=== PATIENT | female | born 1930 | race Caucasian/White ===

== ENCOUNTER 2016-05-06 14:19 | Emergency (ER) | payer MEDICARE ==
[2016-05-06 14:27] VITALS: O2SAT 97
--- NOTE | 2016-05-06 14:56 | ERPHSYRPT ---
- History of Present Illness Time Seen by Provider: 05/06/16 14:53 Source: patient Exam Limitations: no limitations Patient Subjective Stated Complaint: PT REPORTS EPISODE OF UPPER GASTRIC NAUSEA X 3-STATES SHE FEELS LIKE SHE IS GOING TO BE SICK BUT DOES NOT-STATES EPISODES DO NOT LAST LONG-JOSE CRANE Triage Nursing Assessment: PT PINK WARM ET DRY-A & O X 3-RESP EASY ET NONLABORED -MOVING ALL EXTREMITIES WITH EASE Physician History: This is a 85-year-old white female who arrives with complaint of low waking up last night experiencing nausea which went from her epigastric region up to her head she does not know what time it happened she states that it lasted briefly and went away, Then she states that this afternoon at about 11:00 she had experienced nausea as well. Patient states she has a history of atrial fibrillation and she is worried about her heart she apparently has a heart doctor that is out of town. She is not having any chest pain she is not short of breath no vomiting no fevers. Patient states she is in no distress at this time Past medical history includes atrial fibrillation cataracts arrhythmia asthma DVT polyps osteoporosis kidney infections Past surgical history includes colonoscopy, bladder tie up, hysterectomy, back surgery, T&A Timing/Duration: other (some time in middle of the night patient woke up nauseous then again at 11:00 experience nauseous) Associated Symptoms: nausea, No vomiting, No abdominal pain, No shortness of breath, No heartburn, No diaphoresis, No cough, No chills, No chest pain, No fever, No headaches, No loss of appetite, No malaise, No rash, No syncope, No seizure, No weakness Allergies/Adverse Reactions: doxycycline Allergy (Severe, Verified 05/06/16 14:28) Blisters blisters in throat and difficulty swallowing Penicillins Allergy (Intermediate, Verified 05/06/16 14:28) Swelling of Face Sulfa (Sulfonamide Antibiotics) [Sulfa(Sulfonamide Antibiotics)] Allergy ( Intermediate, Verified 05/06/16 14:28) Swelling of Face amoxicillin [Amoxicillin] Allergy (Verified 05/06/16 14:28) ciprofloxacin [From Cipro] Adverse Reaction (Intermediate, Verified 05/06/16 14: 28) weak and sick weak and sick ciprofloxacin HCl [From Cipro] Adverse Reaction (Intermediate, Verified 14:28) weak and sick weak and sick codeine [Codeine] Adverse Reaction (Mild, Verified 05/06/16 14:28) Nausea Home Medications: Warfarin Sodium [Coumadin] 4 mg PO DAILY 06/25/13 [History] Metoprolol Succinate [Toprol Xl] 50 mg PO DAILY 05/06/16 [History] Hx Tetanus, Diphtheria Vaccination/Date Given: No Hx Influenza Vaccination/Date Given: Yes Hx Pneumococcal Vaccination/Date Given: Yes Immunizations Up to Date: Yes - Review of Systems Constitutional: No Fever, No Chills Eyes: No Symptoms Ears, Nose, & Throat: No Symptoms Respiratory: No Cough, No Dyspnea Cardiac: No Chest Pain, No Edema, No Syncope Abdominal/Gastrointestinal: Nausea, No Abdominal Pain, No Vomiting, No Diarrhea Genitourinary Symptoms: No Dysuria Musculoskeletal: No Back Pain, No Neck Pain Skin: No Rash Neurological: No Dizziness, No Focal Weakness, No Sensory Changes Psychological: No Symptoms Endocrine: No Symptoms All Other Systems: Reviewed and Negative - Past Medical History Pertinent Past Medical History: Yes Neurological History: No Pertinent History ENT History: Cataracts, Other Cardiac History: Arrhythmia, Deep Vein Thrombosis Respiratory History: Asthma Endocrine Medical History: No Pertinent History Musculoskeletal History: Osteoporosis GI Medical History: Polyps History: Other Psycho-Social History: No Pertinent History Female Reproductive Disorders: No Pertinent History Other Medical History: CHRONIC AFIB, nose bleeds, kidney infection - Past Surgical History Past Surgical History: Yes Neuro Surgical History: No Pertinent History Cardiac: No Pertinent History Respiratory: No Pertinent History Gastrointestinal: Other Genitourinary: Other Musculoskeletal: Orthopedic Surgery Female Surgical History: Hysterectomy Other Surgical History: colonoscopy, bladder tie up, hysterectomy is partial,. back surgery x 2, tonsilectomy - Social History Smoking Status: Never smoker Exposure to second hand smoke: No Drug Use: none Patient Lives Alone: No - Female History Hx Now: No - Nursing Vital Signs Nursing Vital Signs: Initial Vital Signs Temperature 97.9 F Temperature Source Oral Pulse Rate 88 Respiratory Rate 22 Blood Pressure [] 123/86 Pain Intensity 0 - Physical Exam General Appearance: no apparent distress, alert Eye Exam: PERRL/EOMI, eyes nml inspection Ears, Nose, Throat Exam: normal ENT inspection, TMs normal, pharynx normal, moist mucous membranes Neck Exam: normal inspection, non-tender, supple, full range of motion Respiratory Exam: normal breath sounds, lungs clear, No respiratory distress Cardiovascular Exam: regular rate/rhythm, normal heart sounds, normal peripheral pulses Gastrointestinal/Abdomen Exam: soft, normal bowel sounds, No tenderness, No mass Back Exam: normal inspection, normal range of motion, No CVA tenderness, No vertebral tenderness Extremity Exam: normal inspection, normal range of motion, pelvis stable Neurologic Exam: alert, oriented x 3, cooperative, normal mood/affect, nml cerebellar function, nml station & gait, sensation nml, No motor deficits SpO2 Interpretation: normal (97%) SpO2: 97 Oxygen Delivery: Room Air - Course Nursing assessment & vital signs reviewed: Yes EKG Interpreted by Me: RATE (89 bpm), NORMAL AXIS, Other (EKG, atrial fibrillation [address] or T wave changes, normal axis compared to August 21, 2014 with) - Radiology Exams Chest X-ray Interpretation: Interpreted by me (no acute disease process noted), No Pneumonia, No Pneumothorax Ordered Tests: Active Orders 24 hr Category Date Time Status EKG-ER Only STAT Care 05/06/16 14:52 Active IV Insertion STAT Care 05/06/16 14:52 Active CHEST 1 VIEW (PORTABLE) Stat Exams 05/06/16 14:52 Taken AMYLASE Stat Lab 05/06/16 15:09 Completed CBC W DIFF Stat Lab 05/06/16 15:09 Completed CMP Stat Lab 05/06/16 15:09 Completed LIPASE Stat Lab 05/06/16 15:09 Completed TROPONIN Stat Lab 05/06/16 15:09 Completed UA W/ MICROSCOPIC Stat Lab 05/06/16 16:58 Completed Medication Summary Generic Name Dose Route Start Last Admin Trade Name Freq PRN Reason Stop Dose Admin Sodium Chloride 1,000 mls @ 100 mls/hr 05/06/16 16:00 05/06/16 15:48 Sodium Chloride 0.9% 1000 Ml IV 06/05/16 15:59 100 mls/hr .Q10H LEANN Administration Discontinued Medications Generic Name Dose Route Start Last Admin Trade Name Freq PRN Reason Stop Dose Admin Sodium Chloride Confirm 05/06/16 15:42 Sodium Chloride 0.9% 1000 Ml Administered 05/06/16 15:43 Dose 1,000 mls @ ud .ROUTE .STK-MED ONE Lab/Rad Data: Laboratory Result Diagrams 05/06/16 15:09 05/06/16 15:09 Laboratory Results 05/06/16 05/06/16 05/06/16 Range/Units 16:58 15:09 15:09 WBC 7.1 (4.0-10.5) K/mm3 RBC 4.32 (4.1-5.4) M/mm3 Hgb 12.0 (12.0-16.0) gm/dl Hct 35.9 (35-47) % MCV 83.1 (78-100) fl MCH 27.8 (26-32) pg MCHC 33.4 (32-36) g/dl RDW 15.7 H (11.5-14.0) % Plt Count 328 (150-450) K/mm3 MPV 9.1 (6-9.5) fl Gran % 66.6 H (36.0-66.0) % Lymphocytes % 23.9 L (24.0-44.0) % Monocytes % 7.6 (0.0-12.0) % Eosinophils % 1.6 (0.00-5.0) % Basophils % 0.3 (0.0-0.4) % Basophils # 0.02 (0-0.4) Sodium 135 L (136-145) mEq/L Potassium 4.8 (3.5-5.1) mEq/L Chloride 101 (98-107) mEq/L Carbon Dioxide 25.3 (21-32) mEq/L Anion Gap 13.3 (5-15) MEQ/L BUN 26 H (9-20) mg/dL Creatinine 1.10 (0.55-1.30) mg/dl Estimated GFR 50 ML/MIN Glucose 130 H (70-110) MG/DL Calcium 9.2 (8.5-10.1) mg/dL Total Bilirubin 0.4 (0.2-1.0) mg/dL AST 27 (15-37) U/L ALT 14 (12-78) U/L Alkaline Phosphatase 126 H (46-116) U/L Troponin I 0.039 (0.000-0.056) ng/ml Serum Total Protein 7.4 (6.4-8.2) gm/dL Albumin 3.2 L (3.4-5.0) g/dL Amylase 73 (25-115) U/L Lipase 212 (73-393) U/L Ur Collection Type CLEAN CATCH Urine Color YELLOW (YELLOW) Urine Appearance CLEAR (CLEAR) Urine pH 5.5 (5-6) Ur Specific [place] 1.015 (1.005-1.025) Urine Protein NEGATIVE (Negative) Urine Glucose (UA) NEGATIVE (NEGATIVE) mg/dL Urine Ketones NEGATIVE (NEGATIVE) Urine Nitrite NEGATIVE (NEGATIVE) Urine Bilirubin NEGATIVE (NEGATIVE) Urine Urobilinogen 0.2 (0-1) mg/dL Urine WBC (Auto) TRACE (NEGATIVE) Urine RBC (Auto) TRACE-INTACT (0-5) [place]/ul Urine Microscopic RBC 2-5 (0-2) /HPF Urine Microscopic WBC 2-5 (0-5) /HPF Ur Epithelial Cells FEW (FEW) /HPF Urine Bacteria FEW (NEGATIVE) /HPF Urine Mucus SLIGHT (NEGATIVE) /HPF Specimen Received 05/06/16 1700 - Progress Progress: improved Progress Note: 05/06/16 17:20 85-year-old white female who arrives with complaint of waking up in the middle of the night with nausea and "just feels sick" which lasted for a brief period of time. She then had some nausea at 11:00 again a brief period time she has been not having any complaints since arrival. Chest x-ray is unremarkable CBC is normal EKG no acute changes atrial fibrillation patient is on Coumadin patient's troponin is 0.039 which is within are normal limits chemistry is normal. Patient has been stable since being here and she arrived in no distress. I have offered to obtain repeat troponin on this patient. She does not want this. Will go ahead and discharge patient patient is to follow-up with her family doctor. I have offered to give the patient medication for nausea she does not want this. Will have patient return home rest medications as prescribed by her family doctor and her suspect artist. She is to return for acute distress or for severe symptoms She is to follow-up with her family doctor or her suspect artist call tomorrow for an appointment - Departure Time of Disposition: 17:23 Departure Disposition: Home Clinical Impression: Nausea, Malaise, Chronic atrial fibrillation, history of ASCAD Condition: Fair Critical Care Time: No Referrals: KAN CHOWDHURY [Primary Care Provider] - Additional Instructions: Return home. Plenty of fluids. Clear fluids only 24-48 hours if nausea or vomiting. Medications as prescribed by your family doctor/suspect artist. Follow-up with your family doctor/suspect artist call tomorrow for an appointment. Return for acute distress or for severe symptoms.
[2016-05-06 15:22] LABS: BASOPHIL % 0.3 % (0.0-0.4); Eosinophil % 1.6 % (0.00-5.0); Granulocytes % 66.6 % (36.0-66.0); Lymphocytes % 23.9 % (24.0-44.0); Mean Cell Volume 83.1 fl (78-100); Mean Corpuscular Hemoglobin 27.8 pg (26-32); Mean Platelet Volume 9.1 fl (6-9.5); Monocytes % 7.6 % (0.0-12.0); Platelet Count 328 K/mm3 (150-450); Red Blood Count 4.32 M/mm3 (4.1-5.4); Red Cell Distribution Width 15.7 % (11.5-14.0); White Blood Count 7.1 K/mm3 (4.0-10.5)
[2016-05-06] MEDS ORDERED: Sodium Chloride 0.9% 1000 ML 1,000 ML ONE (15:42)
[2016-05-06 15:43] LABS: ALBUMIN 3.2 g/dL (3.4-5.0); ANION GAP 13.3 MEQ/L (5-15); BILIRUBIN,TOTAL 0.4 mg/dL (0.2-1.0); Carbon Dioxide 25.3 mEq/L (21-32); Potassium 4.8 mEq/L (3.5-5.1); TROPONIN 0.039 ng/ml (0.000-0.056); Total Protein 7.4 gm/dL (6.4-8.2)
[2016-05-06] MEDS ORDERED: Sodium Chloride 0.9% 1000 ML 1,000 ML IV SCH (16:00)
[2016-05-06 17:00] VITALS: BP 123/86; PULSE 88
[2016-05-06 17:13] LABS: Bacteria FEW /HPF (NEGATIVE); COMPLETE URINE MICROSCOPIC? YES; Collection Type CLEAN CATCH; Epithelial Cells FEW /HPF (FEW); Mucus SLIGHT /HPF (NEGATIVE); Ph 5.5 (5-6)
--- NOTE | 2016-05-06 20:56 | XRAY ---
Indication: Nausea. History of atrial fibrillation. Comparison: August 21, 2014. Portable chest again hyperinflated and clear. Heart is not enlarged. Stable hilar calcified nodes. Bony thorax intact again with mild osteopenia and degenerative changes. Impression: Stable nonacute hyperinflated chest with chronic features.
== END 2016-05-06 17:32 | disposition home or self-care (01) ==
LOC: ED 14:19
DX: R11.0 Nausea (principal); R53.81 Other malaise; I48.2 Chronic atrial fibrillation; Z82.49 Family history of ischemic heart disease and other diseases of the circulatory system; R10.13 Epigastric pain; Z79.01 Long term (current) use of anticoagulants
CPT/HCPCS: 36000; 36415; 71010; 80053; 81000; 82150; 83690; 84484; 85025; 93005; 96360; 96361; 99283

== ENCOUNTER 2016-07-27 19:59 | Emergency (ER) | payer MEDICARE ==
[2016-07-27] MEDS ORDERED: Sodium Chloride 0.9% 1000 ML 1,000 ML IV SCH (20:45)
--- NOTE | 2016-07-27 20:49 | ERPHSYRPT ---
- History of Present Illness Time Seen by Provider: 07/27/16 20:35 Source: patient, family (DAUGHTER) Exam Limitations: no limitations Physician History: FOR THE PAST 4 DAYS PT HAS HAD STOPPED UP EARS; FOR THE PAST 3 DAYS INCREASED URINARY FREQUENCY; FOR THE PAST 12.5 HOURS PT STATES SHE JUST "FELT BAD". PT ALSO HAS HAD ANKLE SWELLING TODAY AND OCCASIONAL SHORTNESS OF AIR. PT HAS A HX OF INTERMITTENT A.FIB AND IS TAKING COUMADIN. Allergies/Adverse Reactions: doxycycline Allergy (Severe, Verified 07/27/16 21:38) Blisters blisters in throat and difficulty swallowing Penicillins Allergy (Intermediate, Verified 07/27/16 21:38) Swelling of Face Sulfa (Sulfonamide Antibiotics) [Sulfa(Sulfonamide Antibiotics)] Allergy ( Intermediate, Verified 07/27/16 21:38) Swelling of Face amoxicillin [Amoxicillin] Allergy (Verified 07/27/16 21:38) ciprofloxacin [From Cipro] Adverse Reaction (Intermediate, Verified 07/27/16 21: 38) weak and sick weak and sick ciprofloxacin HCl [From Cipro] Adverse Reaction (Intermediate, Verified 21:38) weak and sick weak and sick codeine [Codeine] Adverse Reaction (Mild, Verified 07/27/16 21:38) Nausea Home Medications: Warfarin Sodium [Coumadin] 3 mg PO DAILY 06/25/13 [History] Metoprolol Succinate [Toprol Xl] 50 mg PO DAILY 05/06/16 [History] Albuterol Sulfate [Proair Hfa] 8.5 gm IH 07/27/16 [History] Hx Tetanus, Diphtheria Vaccination/Date Given: No Hx Influenza Vaccination/Date Given: Yes Hx Pneumococcal Vaccination/Date Given: Yes - Review of Systems Ears, Nose, & Throat: Other (STOPPED UP EARS) Respiratory: Dyspnea (OCCASIONAL) Cardiac: Other (INTERMITTENT A.FIB) Genitourinary Symptoms: Frequency Musculoskeletal: Joint Swelling (ANKLES) All Other Systems: Reviewed and Negative - Past Medical History Pertinent Past Medical History: Yes Neurological History: No Pertinent History ENT History: Cataracts, Other Cardiac History: Arrhythmia, Deep Vein Thrombosis Respiratory History: Asthma Endocrine Medical History: No Pertinent History Musculoskeletal History: Osteoporosis GI Medical History: Polyps History: Other Psycho-Social History: No Pertinent History Female Reproductive Disorders: No Pertinent History Other Medical History: CHRONIC AFIB, nose bleeds, kidney infection - Past Surgical History Past Surgical History: Yes Neuro Surgical History: No Pertinent History Cardiac: No Pertinent History Respiratory: No Pertinent History Gastrointestinal: Other Genitourinary: Other Musculoskeletal: Orthopedic Surgery Female Surgical History: Hysterectomy Other Surgical History: colonoscopy, bladder tie up, hysterectomy is partial,. back surgery x 2, tonsilectomy - Social History Smoking Status: Never smoker Exposure to second hand smoke: No Drug Use: none Patient Lives Alone: No - Female History Hx Now: No - Nursing Vital Signs Nursing Vital Signs: Initial Vital Signs Temperature 97.5 F Temperature Source Oral Pulse Rate 82 Respiratory Rate 16 Blood Pressure [] 122/82 Pain Intensity 0 - Physical Exam General Appearance: alert Eye Exam: PERRL/EOMI Ears, Nose, Throat Exam: TMs normal, pharynx normal, moist mucous membranes Neck Exam: normal inspection Respiratory Exam: lungs clear Cardiovascular Exam: irregular Gastrointestinal/Abdomen Exam: soft, normal bowel sounds Back Exam: normal range of motion Extremity Exam: normal inspection Neurologic Exam: alert, cooperative Skin Exam: warm, dry SpO2 Interpretation: normal SpO2: 98 Oxygen Delivery: Room Air - Course Nursing assessment & vital signs reviewed: Yes EKG Interpreted by Me: RATE (75), A-fib, NORMAL AXIS - Radiology Exams Chest X-ray Interpretation: Interpreted by me, No Pneumonia Ordered Tests: Active Orders 24 hr Category Date Time Status Parts Driver STAT Care 07/27/16 20:41 Active Clean Catch Urine Specimen STAT Care 07/27/16 21:15 Active EKG-ER Only STAT Care 07/27/16 20:41 Active IV Insertion STAT Care 07/27/16 20:41 Active Oxygen-ED Only NASAL CANNULA 2 lpm Care 07/27/16 20:41 Active Pulse Oximetry (ED) STAT Care 07/27/16 20:41 Active CHEST 1 VIEW (PORTABLE) Stat Exams 07/27/16 20:41 Completed AMYLASE Stat Lab 07/27/16 20:45 Completed CBC W DIFF Stat Lab 07/27/16 20:45 Completed CMP Stat Lab 07/27/16 20:45 Completed CULTURE,URINE Stat Lab 07/27/16 20:43 Received LIPASE Stat Lab 07/27/16 20:45 Completed MAGNESIUM Stat Lab 07/27/16 20:45 Completed NT PRO BNP Stat Lab 07/27/16 20:45 Completed PROTIME WITH INR Stat Lab 07/27/16 20:45 Completed PTT Stat Lab 07/27/16 20:45 Completed TROPONIN Q3H Lab 07/27/16 20:45 Completed TROPONIN Q3H Lab 07/27/16 23:45 Ordered TROPONIN Q3H Lab 07/28/16 02:45 Ordered TROPONIN Q3H Lab 07/28/16 05:45 Ordered TROPONIN Q3H Lab 07/28/16 08:45 Ordered UA W/ MICROSCOPIC Stat Lab 07/27/16 21:00 Completed Medication Summary Generic Name Dose Route Start Last Admin Trade Name Freq PRN Reason Stop Dose Admin Sodium Chloride 1,000 mls @ 100 mls/hr 07/27/16 20:45 07/27/16 21:00 Sodium Chloride 0.9% 1000 Ml IV 08/26/16 20:44 100 mls/hr .Q10H LEANN Administration Lab/Rad Data: Laboratory Result Diagrams 07/27/16 20:45 07/27/16 20:45 Laboratory Results 07/27/16 07/27/16 07/27/16 Range/Units 21:00 20:45 20:45 WBC (4.0-10.5) K/mm3 RBC (4.1-5.4) M/mm3 Hgb (12.0-16.0) gm/dl Hct (35-47) % MCV (78-100) fl MCH (26-32) pg MCHC (32-36) g/dl RDW (11.5-14.0) % Plt Count (150-450) K/mm3 MPV (6-9.5) fl Gran % (36.0-66.0) % Lymphocytes % (24.0-44.0) % Monocytes % (0.0-12.0) % Eosinophils % (0.00-5.0) % Basophils % (0.0-0.4) % Basophils # (0-0.4) INR 2.18 (0.8-3.0) APTT 45.8 H (25.3-37.0) SECONDS Sodium (136-145) mEq/L Potassium (3.5-5.1) mEq/L Chloride (98-107) mEq/L Carbon Dioxide (21-32) mEq/L Anion Gap (5-15) MEQ/L BUN (9-20) mg/dL Creatinine (0.55-1.30) mg/dl Estimated GFR ML/MIN Glucose (70-110) MG/DL Calcium (8.5-10.1) mg/dL Magnesium (1.8-2.4) mg/dL Total Bilirubin (0.2-1.0) mg/dL AST (15-37) U/L ALT (12-78) U/L Alkaline Phosphatase (46-116) U/L Troponin I 0.026 (0.000-0.056) ng/ml NT-Pro-B Natriuret Pep (0-450) pg/ml Serum Total Protein (6.4-8.2) gm/dL Albumin (3.4-5.0) g/dL Amylase (25-115) U/L Lipase (73-393) U/L Ur Collection Type CLEAN CATCH Urine Color YELLOW (YELLOW) Urine Appearance CLEAR (CLEAR) Urine pH 5.5 (5-6) Ur Specific [place] 1.010 (1.005-1.025) Urine Protein NEGATIVE (Negative) Urine Glucose (UA) NEGATIVE (NEGATIVE) mg/dL Urine Ketones NEGATIVE (NEGATIVE) Urine Nitrite NEGATIVE (NEGATIVE) Urine Bilirubin NEGATIVE (NEGATIVE) Urine Urobilinogen 0.2 (0-1) mg/dL Urine WBC (Auto) SMALL (NEGATIVE) Urine RBC (Auto) TRACE NON-HEM (0-5) [place]/ul Urine Microscopic RBC 0-2 (0-2) /HPF Urine Microscopic WBC 2-5 (0-5) /HPF Ur Epithelial Cells FEW (FEW) /HPF Urine Bacteria FEW (NEGATIVE) /HPF Specimen Received 07/27/16:2100 07/27/16 07/27/16 Range/Units 20:45 20:45 WBC 6.2 (4.0-10.5) K/mm3 RBC 4.20 (4.1-5.4) M/mm3 Hgb 11.5 L (12.0-16.0) gm/dl Hct 35.0 (35-47) % MCV 83.3 (78-100) fl MCH 27.3 (26-32) pg MCHC 32.9 (32-36) g/dl RDW 15.6 H (11.5-14.0) % Plt Count 323 (150-450) K/mm3 MPV 9.0 (6-9.5) fl Gran % 48.4 (36.0-66.0) % Lymphocytes % 35.4 (24.0-44.0) % Monocytes % 11.8 (0.0-12.0) % Eosinophils % 3.9 (0.00-5.0) % Basophils % 0.5 (0.0-0.4) % Basophils # 0.03 (0-0.4) INR (0.8-3.0) APTT (25.3-37.0) SECONDS Sodium 135 L (136-145) mEq/L Potassium 4.7 (3.5-5.1) mEq/L Chloride 102 (98-107) mEq/L Carbon Dioxide 23.6 (21-32) mEq/L Anion Gap 13.6 (5-15) MEQ/L BUN 19 (9-20) mg/dL Creatinine 0.75 (0.55-1.30) mg/dl Estimated GFR > 60 ML/MIN Glucose 94 (70-110) MG/DL Calcium 9.2 (8.5-10.1) mg/dL Magnesium 1.9 (1.8-2.4) mg/dL Total Bilirubin 0.5 (0.2-1.0) mg/dL AST 33 (15-37) U/L ALT 17 (12-78) U/L Alkaline Phosphatase 151 H (46-116) U/L Troponin I (0.000-0.056) ng/ml NT-Pro-B Natriuret Pep 1704 H (0-450) pg/ml Serum Total Protein 7.3 (6.4-8.2) gm/dL Albumin 3.0 L (3.4-5.0) g/dL Amylase 84 (25-115) U/L Lipase 173 (73-393) U/L Ur Collection Type Urine Color (YELLOW) Urine Appearance (CLEAR) Urine pH (5-6) Ur Specific [place] (1.005-1.025) Urine Protein (Negative) Urine Glucose (UA) (NEGATIVE) mg/dL Urine Ketones (NEGATIVE) Urine Nitrite (NEGATIVE) Urine Bilirubin (NEGATIVE) Urine Urobilinogen (0-1) mg/dL Urine WBC (Auto) (NEGATIVE) Urine RBC (Auto) (0-5) [place]/ul Urine Microscopic RBC (0-2) /HPF Urine Microscopic WBC (0-5) /HPF Ur Epithelial Cells (FEW) /HPF Urine Bacteria (NEGATIVE) /HPF Specimen Received - Progress Discussed with Dr.: Nayak (SPOKE WITH DR NAYAK([id number]) WHO ACCEPTED PT FOR TRANSFER TO [facility] A DIRECT ADMISSION.) - Departure Time of Disposition: 22:05 Departure Disposition: Transfer ([facility]) Clinical Impression: A.FIB, DYSPNEA, INTERMEDIATE TROPONIN LEVEL Condition: Fair Critical Care Time: No
[2016-07-27] MEDS ORDERED: Sodium Chloride 0.9% 1000 ML 1,000 ML ONE (21:00)
[2016-07-27 21:05] LABS: BASOPHIL % 0.5 % (0.0-0.4); Eosinophil % 3.9 % (0.00-5.0); Granulocytes % 48.4 % (36.0-66.0); Lymphocytes % 35.4 % (24.0-44.0); Mean Cell Volume 83.3 fl (78-100); Mean Corpuscular Hemoglobin 27.3 pg (26-32); Monocytes % 11.8 % (0.0-12.0); Platelet Count 323 K/mm3 (150-450); Red Cell Distribution Width 15.6 % (11.5-14.0); White Blood Count 6.2 K/mm3 (4.0-10.5)
[2016-07-27 21:19] LABS: Bacteria FEW /HPF (NEGATIVE); COMPLETE URINE MICROSCOPIC? YES; Collection Type CLEAN CATCH; Epithelial Cells FEW /HPF (FEW); Ph 5.5 (5-6)
[2016-07-27 21:21] LABS: INR 2.18 (0.8-3.0); PROTIME 23.9 SECONDS (9.95-12.35)
[2016-07-27 21:23] LABS: PTT 45.8 SECONDS (25.3-37.0)
[2016-07-27 21:37] LABS: ALKALINE PHOSPHATASE 151 U/L (46-116); ANION GAP 13.6 MEQ/L (5-15); BILIRUBIN,TOTAL 0.5 mg/dL (0.2-1.0); BLOOD UREA NITROGEN 19 mg/dL (9-20); CHLORIDE 102 mEq/L (98-107); Carbon Dioxide 23.6 mEq/L (21-32); Glucose 94 MG/DL (70-110); LIPASE 173 U/L (73-393); MAGNESIUM 1.9 mg/dL (1.8-2.4); Potassium 4.7 mEq/L (3.5-5.1); SGOT/AST 33 U/L (15-37); SGPT/ALT 17 U/L (12-78); SODIUM 135 mEq/L (136-145); Total Protein 7.3 gm/dL (6.4-8.2)
--- NOTE | 2016-07-27 22:00 | XRAY ---
Indication: Short of breath. Comparison: May 06, 2016. Portable chest remains hyperinflated and clear again with a few hilar calcified nodes. Heart is not enlarged for AP portable technique. Bony thorax intact again with mild osteopenia and degenerative changes. Impression: Stable nonacute hyperinflated chest with chronic features.
[2016-07-27 23:44] VITALS: BP 122/87; PULSE 86; O2SAT 96
== END 2016-07-27 23:35 | disposition short-term general hospital (02) ==
LOC: ED 19:59
DX: I48.91 Unspecified atrial fibrillation (principal); R06.00 Dyspnea, unspecified; R94.39 Abnormal result of other cardiovascular function study; R35.0 Frequency of micturition; R06.02 Shortness of breath; Z79.01 Long term (current) use of anticoagulants; Z79.899 Other long term (current) drug therapy
CPT/HCPCS: 36000; 36415; 71010; 80053; 81000; 82150; 83690; 83735; 83880; 84484; 85025; 85610; 85730; 87086; 93005; 93041; 96360; 96361; 99285

== ENCOUNTER 2017-08-20 17:00 | Emergency (ER) | payer MEDICARE ==
--- NOTE | 2017-08-20 17:23 | ERPHSYRPT ---
- History of Present Illness Time Seen by Provider: 08/20/17 17:16 Source: patient Exam Limitations: no limitations Patient Subjective Stated Complaint: weakness and some nausea for one weak Triage Nursing Assessment: ambulated to room per self. skin w/d, color normal, resp easy. krishnamurthy without difficulty. a/o times three. Physician History: 86-year-old white female arrives with complaint of feeling weak feeling a "sickness in my upper chest up into my neck like I'm going to be sick" symptoms off and on for 3 days last time noon today denies any shortness of breath has had some nausea no fevers patient states the episodes last about one minute. Past medical history includes arrhythmia, DVT, asthma, atrial fibrillation, nosebleeds, kidney infection. Past surgical history includes hysterectomy, colonoscopy, bladder tie up, back surgery, tonsillectomy today. Timing/Duration: day(s) (3 days) Severity: mild Modifying Factors: Improves With: nothing Associated Symptoms: nausea, chest pain (States feels "sick" and upper chest and neck off-and-on for 3 days), No vomiting, No abdominal pain, No shortness of breath, No heartburn, No diaphoresis, No cough, No chills Allergies/Adverse Reactions: doxycycline Allergy (Severe, Verified 08/20/17 17:16) Blisters blisters in throat and difficulty swallowing Penicillins Allergy (Intermediate, Verified 08/20/17 17:16) Swelling of Face Sulfa (Sulfonamide Antibiotics) [Sulfa(Sulfonamide Antibiotics)] Allergy ( Intermediate, Verified 08/20/17 17:16) Swelling of Face amoxicillin [Amoxicillin] Allergy (Verified 08/20/17 17:16) ciprofloxacin [From Cipro] Adverse Reaction (Intermediate, Verified 08/20/17 17: 16) weak and sick weak and sick ciprofloxacin HCl [From Cipro] Adverse Reaction (Intermediate, Verified 17:16) weak and sick weak and sick codeine [Codeine] Adverse Reaction (Mild, Verified 08/20/17 17:16) Nausea Home Medications: Warfarin Sodium [Coumadin] 3 mg PO DAILY 06/25/13 [History] Metoprolol Succinate [Toprol Xl] 50 mg PO DAILY 05/06/16 [History] Albuterol Sulfate [Proair Hfa] 8.5 gm IH BID 05/12/17 [History] Hx Tetanus, Diphtheria Vaccination/Date Given: No Hx Influenza Vaccination/Date Given: Yes Hx Pneumococcal Vaccination/Date Given: Yes - Review of Systems Constitutional: No Fever, No Chills Eyes: No Symptoms Ears, Nose, & Throat: No Symptoms Respiratory: No Cough, No Dyspnea Cardiac: No Chest Pain, No Edema, No Syncope Abdominal/Gastrointestinal: No Abdominal Pain, No Nausea, No Vomiting, No Diarrhea Genitourinary Symptoms: No Dysuria Musculoskeletal: No Back Pain, No Neck Pain Skin: No Rash Neurological: No Dizziness, No Focal Weakness, No Sensory Changes Psychological: No Symptoms Endocrine: No Symptoms All Other Systems: Reviewed and Negative - Past Medical History Pertinent Past Medical History: Yes Neurological History: No Pertinent History ENT History: Cataracts, Other Cardiac History: Arrhythmia, Deep Vein Thrombosis Respiratory History: Asthma Endocrine Medical History: No Pertinent History Musculoskeletal History: Osteoporosis GI Medical History: Polyps History: Other Psycho-Social History: No Pertinent History Female Reproductive Disorders: No Pertinent History Other Medical History: CHRONIC AFIB, nose bleeds, kidney infection - Past Surgical History Past Surgical History: Yes Neuro Surgical History: No Pertinent History Cardiac: No Pertinent History Respiratory: No Pertinent History Gastrointestinal: Other Genitourinary: Other Musculoskeletal: Orthopedic Surgery Female Surgical History: Hysterectomy Other Surgical History: colonoscopy, bladder tie up, hysterectomy is partial,. back surgery x 2, tonsilectomy - Social History Smoking Status: Never smoker Exposure to second hand smoke: No Drug Use: none Patient Lives Alone: No - Female History Hx Now: No - Nursing Vital Signs Nursing Vital Signs: Initial Vital Signs Temperature 97.6 F 08/20/17 17:04 Pulse Rate 87 08/20/17 17:04 Respiratory Rate 16 08/20/17 17:04 Blood Pressure 148/92 08/20/17 17:04 O2 Sat by Pulse Oximetry 98 08/20/17 17:04 Pain Scale Pain Intensity 0 - Physical Exam General Appearance: no apparent distress, alert Eye Exam: PERRL/EOMI, eyes nml inspection Ears, Nose, Throat Exam: normal ENT inspection, TMs normal, pharynx normal, moist mucous membranes Neck Exam: normal inspection, non-tender, supple, full range of motion Respiratory Exam: normal breath sounds, lungs clear, No respiratory distress Cardiovascular Exam: regular rate/rhythm, normal heart sounds, normal peripheral pulses Gastrointestinal/Abdomen Exam: soft, normal bowel sounds, No tenderness, No mass Back Exam: normal inspection, normal range of motion, No CVA tenderness, No vertebral tenderness Extremity Exam: normal inspection, normal range of motion, pelvis stable Neurologic Exam: alert, oriented x 3, cooperative, 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, normal mood/affect, nml cerebellar function, nml station & gait, sensation nml, No motor deficits Skin Exam: normal color, warm, dry, No rash Lymphatic Exam: No adenopathy SpO2 Interpretation: normal (98%), borderline oxygenation SpO2: 98 Oxygen Delivery: Room Air - Course Nursing assessment & vital signs reviewed: Yes EKG Interpreted by Me: RATE (86 bpm), Sinus Rhythm, NORMAL AXIS, Other (EKG: atrial fibrillation, 86 bpm, normal axis, no acute ST or T wave changes noted) - Radiology Exams Chest X-ray Interpretation: Interpreted by me (no acute disease process noted) Ordered Tests: Active Orders 24 hr Category Date Time Status Customer Operations Intern STAT Care 08/20/17 17:17 Active EKG-ER Only STAT Care 08/20/17 17:17 Active IV Insertion STAT Care 08/20/17 17:17 Active Pulse Oximetry (ED) STAT Care 08/20/17 17:17 Active CHEST 1 VIEW (PORTABLE) Stat Exams 08/20/17 17:17 Taken CBC W DIFF Stat Lab 08/20/17 17:32 Completed CMP Stat Lab 08/20/17 17:32 Completed CULTURE,URINE Stat Lab 08/20/17 18:51 Received D-DIMER QUANTITATION Stat Lab 08/20/17 17:32 Completed PROTIME WITH INR Stat Lab 08/20/17 17:32 Completed PTT Stat Lab 08/20/17 17:32 Completed TROPONIN Q3H Lab 08/20/17 17:30 Completed TROPONIN Q3H Lab 08/20/17 20:30 Ordered TROPONIN Q3H Lab 08/20/17 23:30 Ordered TROPONIN Q3H Lab 08/21/17 02:30 Ordered TROPONIN Q3H Lab 08/21/17 05:30 Ordered UA W/ MICROSCOPIC Stat Lab 08/20/17 18:51 Completed Lab/Rad Data: Laboratory Result Diagrams 08/20/17 17:32 08/20/17 17:32 Laboratory Results 08/20/17 08/20/17 08/20/17 Range/Units 18:51 17:32 17:32 WBC (4.0-10.5) K/mm3 RBC (4.1-5.4) M/mm3 Hgb (12.0-16.0) gm/dl Hct (35-47) % MCV (78-100) fl MCH (26-32) pg MCHC (32-36) g/dl RDW (11.5-14.0) % Plt Count (150-450) K/mm3 MPV (6-9.5) fl Gran % (36.0-66.0) % Eos # (Auto) (0-0.5) Absolute Lymphs (auto) (1.0-4.6) Absolute Monos (auto) (0.0-1.3) Lymphocytes % (24.0-44.0) % Monocytes % (0.0-12.0) % Eosinophils % (0.00-5.0) % Basophils % (0.0-0.4) % Absolute Granulocytes (1.4-6.9) Basophils # (0-0.4) PT 20.1 H (9.95-12.35) SECONDS INR 1.72 (0.8-3.0) APTT 39.8 H (25.3-37.0) SECONDS D-Dimer 289 (215-500) ng/mL Sodium 136 L (137-145) mmol/L Potassium 4.4 (3.5-5.1) mmol/L Chloride 101 (98-107) mmol/L Carbon Dioxide 28 (22-30) mmol/L Anion Gap 11.2 (5-15) MEQ/L BUN 21 H (7-17) mg/dL Creatinine 0.76 (0.52-1.04) mg/dL Estimated GFR > 60.0 ML/MIN Glucose 143 H (74-106) mg/dL Calcium 9.2 (8.4-10.2) mg/dL Total Bilirubin 0.50 (0.2-1.3) mg/dL AST 33 (14-36) U/L ALT 19 (0-35) U/L Alkaline Phosphatase 125 (38-126) U/L Troponin I (0.000-0.034) ng/mL Serum Total Protein 7.4 (6.3-8.2) g/dL Albumin 3.8 (3.5-5.0) g/dL Ur Collection Type VOID Urine Color YELLOW (YELLOW) Urine Appearance CLEAR (CLEAR) Urine pH 7.0 (5-6) Ur Specific [place] 1.010 (1.005-1.025) Urine Protein NEGATIVE (Negative) Urine Ketones NEGATIVE (NEGATIVE) Urine Blood 50 (0-5) [place]/ul Urine Nitrite POSITIVE (NEGATIVE) Urine Bilirubin NEGATIVE (NEGATIVE) Urine Urobilinogen NORMAL (0-1) mg/dL Ur Leukocyte Esterase 2+ (NEGATIVE) Urine Microscopic RBC 0-2 (0-2) /HPF Urine Microscopic WBC 2-5 (0-5) /HPF Ur Epithelial Cells FEW (FEW) /HPF Urine Bacteria RARE (NEGATIVE) /HPF Urine Culture Reflexed YES (NO) Urine Glucose NEGATIVE (NEGATIVE) mg/dL Specimen Received 08/20/17 1850 08/20/17 08/20/17 Range/Units 17:32 17:30 WBC 6.5 (4.0-10.5) K/mm3 RBC 4.55 (4.1-5.4) M/mm3 Hgb 12.2 (12.0-16.0) gm/dl Hct 37.3 (35-47) % MCV 82.0 (78-100) fl MCH 26.8 (26-32) pg MCHC 32.7 (32-36) g/dl RDW 15.7 H (11.5-14.0) % Plt Count 300 (150-450) K/mm3 MPV 8.6 (6-9.5) fl Gran % 69.6 H (36.0-66.0) % Eos # (Auto) 0.08 (0-0.5) Absolute Lymphs (auto) 1.39 (1.0-4.6) Absolute Monos (auto) 0.50 (0.0-1.3) Lymphocytes % 21.3 L (24.0-44.0) % Monocytes % 7.6 (0.0-12.0) % Eosinophils % 1.2 (0.00-5.0) % Basophils % 0.3 (0.0-0.4) % Absolute Granulocytes 4.55 (1.4-6.9) Basophils # 0.02 (0-0.4) PT (9.95-12.35) SECONDS INR (0.8-3.0) APTT (25.3-37.0) SECONDS D-Dimer (215-500) ng/mL Sodium (137-145) mmol/L Potassium (3.5-5.1) mmol/L Chloride (98-107) mmol/L Carbon Dioxide (22-30) mmol/L Anion Gap (5-15) MEQ/L BUN (7-17) mg/dL Creatinine (0.52-1.04) mg/dL Estimated GFR ML/MIN Glucose (74-106) mg/dL Calcium (8.4-10.2) mg/dL Total Bilirubin (0.2-1.3) mg/dL AST (14-36) U/L ALT (0-35) U/L Alkaline Phosphatase (38-126) U/L Troponin I < 0.012 (0.000-0.034) ng/mL Serum Total Protein (6.3-8.2) g/dL Albumin (3.5-5.0) g/dL Ur Collection Type Urine Color (YELLOW) Urine Appearance (CLEAR) Urine pH (5-6) Ur Specific [place] (1.005-1.025) Urine Protein (Negative) Urine Ketones (NEGATIVE) Urine Blood (0-5) [place]/ul Urine Nitrite (NEGATIVE) Urine Bilirubin (NEGATIVE) Urine Urobilinogen (0-1) mg/dL Ur Leukocyte Esterase (NEGATIVE) Urine Microscopic RBC (0-2) /HPF Urine Microscopic WBC (0-5) /HPF Ur Epithelial Cells (FEW) /HPF Urine Bacteria (NEGATIVE) /HPF Urine Culture Reflexed (NO) Urine Glucose (NEGATIVE) mg/dL Specimen Received - Progress Progress: improved Progress Note: 08/20/17 18:51 This is a 86-year-old white female with history of arrhythmia, DVT, asthma, atrial fibrillation, nosebleeds, kidney infections. Who has been having 3 days of 1 minute episodes of "feeling sick", like a nausea in her upper chest and neck Last of these was at noon today she is not short of breath she does not appear to be in acute distress on arrival. Patient's vitals are stable. Patient's EKG is remarkable for atrial fibrillation 86 beats for minute normal axis no acute ST or T wave changes past since chest x-ray is within normal limits. Patient's CBC chemistry troponin are within normal limits patient's d-dimer is within normal limits INR is 1.72 patient is on Coumadin. Patient just now had stated that she was having some problems with her urine. She has been in no distress since being in here. I have talked with Dr. Schaffer. Patient has essentially ruled out for cardiac etiology and will give patient a diagnosis of atypical chest pain. Will await urine. Initially planning discharge with follow-up with Dr. Schaffer or Saturday , 2-3 days from now patient will be advised to contact him in the morning 2 full schedule follow-up appointment. 08/20/17 19:26 Urinalysis 5-10 white cells negative nitrites Patient in no acute distress Actually doing well, remains with atrial fibrillation on the monitor, controlled rhythm. Will discharge - Departure Time of Disposition: 19:27 Departure Disposition: Home Clinical Impression: Atypical chest pain, Chronic atrial fibrillation Condition: Fair Critical Care Time: No Referrals: KAN SCHAFFER [Primary Care Provider] - Additional Instructions: Return home, rest, plenty of fluids. Continue medications as prescribed by your family doctor. Follow-up with Dr. Schaffer Saturday as scheduled sooner if problems. Return for acute distress severe symptoms or any problems.
[2017-08-20 17:34] LABS: BASOPHIL % 0.3 % (0.0-0.4); Basophil (Absolute #) 0.02 (0-0.4); Eosinophil % 1.2 % (0.00-5.0); Eosinophil (Absolute #) 0.08 (0-0.5); Granulocyte Absolute (ANC) 4.55 (1.4-6.9); Granulocytes % 69.6 % (36.0-66.0); Hematocrit 37.3 % (35-47); Hemoglobin 12.2 gm/dl (12.0-16.0); Lymphocyte (Absolute #) 1.39 (1.0-4.6); Lymphocytes % 21.3 % (24.0-44.0); Mean Corpuscular Hemoglobin 26.8 pg (26-32); Mean Corpuscular Hgb Concent. 32.7 g/dl (32-36); Mean Platelet Volume 8.6 fl (6-9.5); Monocytes % 7.6 % (0.0-12.0); Platelet Count 300 K/mm3 (150-450); Red Blood Count 4.55 M/mm3 (4.1-5.4); Red Cell Distribution Width 15.7 % (11.5-14.0); White Blood Count 6.5 K/mm3 (4.0-10.5)
[2017-08-20 17:47] LABS: INR 1.72 (0.8-3.0)
[2017-08-20 17:50] LABS: PTT 39.8 SECONDS (25.3-37.0)
[2017-08-20 17:51] LABS: ALBUMIN 3.8 g/dL (3.5-5.0); ALKALINE PHOSPHATASE 125 U/L (38-126); ANION GAP 11.2 MEQ/L (5-15); BLOOD UREA NITROGEN 21 mg/dL (7-17); CHLORIDE 101 mmol/L (98-107); Calcium 9.2 mg/dL (8.4-10.2); Carbon Dioxide 28 mmol/L (22-30); Creatinine 1 0.76 mg/dL (0.52-1.04); Glucose 143 mg/dL (74-106); Potassium 4.4 mmol/L (3.5-5.1); SGOT/AST 33 U/L (14-36); SGPT/ALT 19 U/L (0-35); SODIUM 136 mmol/L (137-145); Total Protein 7.4 g/dL (6.3-8.2)
[2017-08-20 19:15] LABS: Appearance CLEAR (CLEAR); Glucose NEGATIVE (NEGATIVE); Ketones NEGATIVE (NEGATIVE); Leukocyte Esterase 2+ (NEGATIVE); Nitrite POSITIVE (NEGATIVE); Protein,Urine Dip NEGATIVE (Negative)
[2017-08-20 19:16] LABS: Bacteria RARE /HPF (NEGATIVE); Bilirubin NEGATIVE (NEGATIVE); Blood 50 Ery/ul (0-5); Epithelial Cells FEW /HPF (FEW); RBC 0-2 /HPF (0-2); Urobilinogen NORMAL mg/dL (0-1)
[2017-08-20 19:44] VITALS: BP 138/89; PULSE 79; O2SAT 97
--- NOTE | 2017-08-21 08:34 | XRAY ---
Indication: Irregular heartbeat. Weakness. Comparison: July 27, 2016. Portable chest remains clear. Heart and mediastinal structures are within normal limits. Bony thorax intact again with mild osteopenia and degenerative changes. Impression: Stable nonacute chest with chronic features.
== END 2017-08-20 19:45 | disposition home or self-care (01) ==
LOC: ED 17:00
DX: R07.89 Other chest pain (principal); I48.91 Unspecified atrial fibrillation; Z79.01 Long term (current) use of anticoagulants; Z79.899 Other long term (current) drug therapy; R53.1 Weakness; Z86.718 Personal history of other venous thrombosis and embolism
CPT/HCPCS: 36000; 36415; 71045; 80053; 81000; 84484; 85025; 85379; 85610; 85730; 87086; 93005; 93041; 99284

== ENCOUNTER 2017-10-19 21:12 | Emergency (ER) | payer MEDICARE ==
--- NOTE | 2017-10-19 22:08 | ERPHSYRPT ---
- History of Present Illness Time Seen by Provider: 10/19/17 22:03 Source: patient Exam Limitations: no limitations Patient Subjective Stated Complaint: pt states she has been dizzy and feels like her heart is beating fast today. denies any chest pain or pressure Triage Nursing Assessment: pt alert and oriented, answer qeustions approp. respirations nonlabored with lungs cta. pt ambulate from wheelchair to stretcher with assist of 1. heart rate 102 a fib on monitor. bilat upper and lower ext strength equal and wnl. no faceial droop noted. pupils equal and reactive. Physician History: patient with history of atrial fib, who presents with dizziness for past 2 days. Episodes usually occurs when patient is standing and lasts only for one to 2 minutes or less. Patient noted several episodes occurring today and described dizziness/lightheadedness, right facial and posterior right leg tingling/numbness. Patient denies any headaches, blurred vision, altered mental status, speech deficits or ataxia. Patient did note some palpitation, but denies any chest pain, shortness of breath, diaphoresis, nausea, vomiting, diarrhea or abdominal/back pain. Patient was diagnosed with urinary tract infection 3 days ago, but have not taken any of her antibiotics. Timing/Duration: day(s) (2), intermittent (usually lasting less than one to 2 minutes), resolved prior to arrival Severity: mild Character of Deficits: altered sensation (right face/right posterior leg), Right Facial Deficits: no difficulties (numbness) Baseline/Normal Cognition: alert oriented x 3 Current Cognition: alert oriented x 3 Baseline Gait: walks w/o assistance Associated Symptoms: numbness/tingling in legs/feet (right posterior leg), No confusion, No fever, No chills, No loss of consciousness, No nausea, No vomiting , No weakness, No slurred speech, No trouble walking, No vision changes, No chest pain, No headache Allergies/Adverse Reactions: doxycycline Allergy (Severe, Verified 08/20/17 17:16) Blisters blisters in throat and difficulty swallowing Penicillins Allergy (Intermediate, Verified 08/20/17 17:16) Swelling of Face Sulfa (Sulfonamide Antibiotics) [Sulfa(Sulfonamide Antibiotics)] Allergy ( Intermediate, Verified 08/20/17 17:16) Swelling of Face amoxicillin [Amoxicillin] Allergy (Verified 08/20/17 17:16) ciprofloxacin [From Cipro] Adverse Reaction (Intermediate, Verified 08/20/17 17: 16) weak and sick weak and sick ciprofloxacin HCl [From Cipro] Adverse Reaction (Intermediate, Verified 17:16) weak and sick weak and sick codeine [Codeine] Adverse Reaction (Mild, Verified 08/20/17 17:16) Nausea Home Medications: Warfarin Sodium [Coumadin] 3 mg PO DAILY 06/25/13 [History] Metoprolol Succinate [Toprol Xl] 50 mg PO DAILY 05/06/16 [History] Albuterol Sulfate [Proair Hfa] 8.5 gm IH BID 07/27/16 [History] Hx Tetanus, Diphtheria Vaccination/Date Given: No Hx Influenza Vaccination/Date Given: Yes Hx Pneumococcal Vaccination/Date Given: Yes Immunizations Up to Date: No - Review of Systems Constitutional: Malaise, No Fever, No Chills Eyes: No Symptoms Ears, Nose, & Throat: No Symptoms Respiratory: No Symptoms, No Cough, No Dyspnea Cardiac: Palpitations, No Chest Pain, No Edema, No Syncope Abdominal/Gastrointestinal: No Symptoms, No Abdominal Pain, No Nausea, No Vomiting, No Diarrhea Genitourinary Symptoms: Frequency, No Urgency Musculoskeletal: No Symptoms, No Back Pain, No Neck Pain Skin: No Symptoms, No Rash Neurological: Dizziness, No Focal Weakness, No Gait Changes, No Headache, No Sensory Changes Psychological: No Symptoms Endocrine: No Symptoms All Other Systems: Reviewed and Negative - Past Medical History Pertinent Past Medical History: Yes Neurological History: No Pertinent History ENT History: Cataracts, Other Cardiac History: Arrhythmia, Deep Vein Thrombosis Respiratory History: Asthma Endocrine Medical History: No Pertinent History Musculoskeletal History: Osteoporosis GI Medical History: Polyps History: Other Psycho-Social History: No Pertinent History Female Reproductive Disorders: No Pertinent History Other Medical History: CHRONIC AFIB, nose bleeds, kidney infection - Past Surgical History Past Surgical History: Yes Neuro Surgical History: No Pertinent History Cardiac: No Pertinent History Respiratory: No Pertinent History Gastrointestinal: Other Genitourinary: Other Musculoskeletal: Orthopedic Surgery Female Surgical History: Hysterectomy Other Surgical History: colonoscopy, bladder tie up, hysterectomy is partial,. back surgery x 2, tonsilectomy - Social History Smoking Status: Never smoker Exposure to second hand smoke: No Drug Use: none Patient Lives Alone: Yes - Nursing Vital Signs Nursing Vital Signs: Initial Vital Signs Temperature 98.4 F 10/19/17 21:22 Pulse Rate 95 H 10/19/17 21:22 Respiratory Rate 16 10/19/17 21:22 Blood Pressure 165/97 10/19/17 21:22 O2 Sat by Pulse Oximetry 97 10/19/17 21:22 Pain Scale Pain Intensity 0 - [place] Coma Scale Best Eye Response ([place]): (4) open spontaneously Best Verbal Response ([place]): (5) oriented Best Motor Response ([place]): (6) obeys commands Leonel Total: 15 - Physical Exam General Appearance: no apparent distress, alert Eye Exam: bilateral eye: PERRL, EOMI Ears, Nose, Throat Exam: normal ENT inspection, moist mucous membranes Neck Exam: normal inspection, non-tender, supple Respiratory: normal breath sounds, lungs clear, airway intact, No respiratory distress Cardiovascular: regular rate/rhythm, No edema Gastrointestinal: soft, No tenderness, No distention Back Exam: normal inspection Extremity Exam: normal inspection, No pedal edema Peripheral Pulses: dorsalis-pedis (R): 2+, dorsalis-pedis (L): 2+ Mental Status: alert, oriented x 3 arabic translator Exam: tongue midline Coordination/Gait: normal finger to nose, normal gait Motor/Sensory: no motor deficit, no sensory deficit, no pronator drift DTR: knee (R): 2+, knee (L): 2+ Skin Exam: normal color, warm, dry, No rash SpO2 Interpretation: normal SpO2: 97 Oxygen Delivery: Room Air - Course Nursing assessment & vital signs reviewed: Yes EKG Interpreted by Me: RATE (97), A-fib, NORMAL AXIS, NORMAL QRS, Non-specific ST Changes - CT Exams Head CT Interpretation: Negative, Tele-radiologist Report Ordered Tests: Active Orders 24 hr Category Date Time Status Comic Illustrator STAT Care 10/19/17 21:50 Active Clean Catch Urine Specimen STAT Care 10/19/17 21:48 Active EKG-ER Only STAT Care 10/19/17 21:48 Active IV Insertion STAT Care 10/19/17 21:48 Active Orthostatic Vital Signs STAT Care 10/19/17 21:51 Active CHEST 2 VIEWS (PA AND LAT) Stat Exams 10/19/17 21:51 Taken HEAD WITHOUT CONTRAST [CT] Stat Exams 10/19/17 21:49 Taken BNP [NT PRO BNP] Stat Lab 10/19/17 22:00 Completed CBC W DIFF Stat Lab 10/19/17 22:00 Completed CMP Stat Lab 10/19/17 22:00 Completed TROPONIN Q3H Lab 10/19/17 22:00 Completed UA W/RFX UR CULTURE Stat Lab 10/19/17 21:48 Completed Medication Summary Discontinued Medications Generic Name Dose Route Start Last Admin Trade Name Idris PRN Reason Stop Dose Admin Sodium Chloride 500 mls @ 500 mls/hr 10/19/17 22:01 10/19/17 22:28 Sodium Chloride 0.9% 1000 Ml IV 10/19/17 23:00 500 mls/hr .Q1H STA Administration Sodium Chloride Confirm 10/19/17 22:25 Sodium Chloride 0.9% 1000 Ml Administered 10/19/17 22:26 Dose 1,000 mls @ ud .ROUTE .STK-MED ONE Lab/Rad Data: Laboratory Result Diagrams 10/19/17 22:00 10/19/17 22:00 Laboratory Results 10/19/17 10/19/17 10/19/17 Range/Units 22:00 22:00 22:00 WBC (4.0-10.5) K/mm3 RBC (4.1-5.4) M/mm3 Hgb (12.0-16.0) gm/dl Hct (35-47) % MCV (78-100) fl MCH (26-32) pg MCHC (32-36) g/dl RDW (11.5-14.0) % Plt Count (150-450) K/mm3 MPV (6-9.5) fl Gran % (36.0-66.0) % Eos # (Auto) (0-0.5) Absolute Lymphs (auto) (1.0-4.6) Absolute Monos (auto) (0.0-1.3) Lymphocytes % (24.0-44.0) % Monocytes % (0.0-12.0) % Eosinophils % (0.00-5.0) % Basophils % (0.0-0.4) % Absolute Granulocytes (1.4-6.9) Basophils # (0-0.4) Sodium 130 L (137-145) mmol/L Potassium 4.3 (3.5-5.1) mmol/L Chloride 99 (98-107) mmol/L Carbon Dioxide 24 (22-30) mmol/L Anion Gap 11.7 (5-15) MEQ/L BUN 22 H (7-17) mg/dL Creatinine 0.80 (0.52-1.04) mg/dL Estimated GFR > 60.0 ML/MIN Glucose 127 H (74-106) mg/dL Calcium 9.3 (8.4-10.2) mg/dL Total Bilirubin 0.50 (0.2-1.3) mg/dL AST 29 (14-36) U/L ALT 16 (0-35) U/L Alkaline Phosphatase 106 (38-126) U/L Troponin I < 0.012 (0.000-0.034) ng/mL NT-Pro-B Natriuret Pep 1670 (0-1800) pg/mL Serum Total Protein 7.1 (6.3-8.2) g/dL Albumin 3.7 (3.5-5.0) g/dL Ur Collection Type Urine Color (YELLOW) Urine Appearance (CLEAR) Urine pH (5-6) Ur Specific [place] (1.005-1.025) Urine Protein (Negative) Urine Ketones (NEGATIVE) Urine Blood (0-5) [place]/ul Urine Nitrite (NEGATIVE) Urine Bilirubin (NEGATIVE) Urine Urobilinogen (0-1) mg/dL Ur Leukocyte Esterase (NEGATIVE) Urine Culture Reflexed (NO) Urine Glucose (NEGATIVE) mg/dL Specimen Received 10/19/17 10/19/17 Range/Units 22:00 21:48 WBC 6.0 (4.0-10.5) K/mm3 RBC 4.35 (4.1-5.4) M/mm3 Hgb 11.7 L (12.0-16.0) gm/dl Hct 35.2 (35-47) % MCV 80.9 (78-100) fl MCH 26.8 (26-32) pg MCHC 33.2 (32-36) g/dl RDW 15.7 H (11.5-14.0) % Plt Count 291 (150-450) K/mm3 MPV 8.8 (6-9.5) fl Gran % 71.3 H (36.0-66.0) % Eos # (Auto) 0.04 (0-0.5) Absolute Lymphs (auto) 1.23 (1.0-4.6) Absolute Monos (auto) 0.43 (0.0-1.3) Lymphocytes % 20.5 L (24.0-44.0) % Monocytes % 7.2 (0.0-12.0) % Eosinophils % 0.7 (0.00-5.0) % Basophils % 0.3 (0.0-0.4) % Absolute Granulocytes 4.27 (1.4-6.9) Basophils # 0.02 (0-0.4) Sodium (137-145) mmol/L Potassium (3.5-5.1) mmol/L Chloride (98-107) mmol/L Carbon Dioxide (22-30) mmol/L Anion Gap (5-15) MEQ/L BUN (7-17) mg/dL Creatinine (0.52-1.04) mg/dL Estimated GFR ML/MIN Glucose (74-106) mg/dL Calcium (8.4-10.2) mg/dL Total Bilirubin (0.2-1.3) mg/dL AST (14-36) U/L ALT (0-35) U/L Alkaline Phosphatase (38-126) U/L Troponin I (0.000-0.034) ng/mL NT-Pro-B Natriuret Pep (0-1800) pg/mL Serum Total Protein (6.3-8.2) g/dL Albumin (3.5-5.0) g/dL Ur Collection Type VOID Urine Color LT.YELLOW (YELLOW) Urine Appearance CLEAR (CLEAR) Urine pH 5.0 (5-6) Ur Specific [place] 1.010 (1.005-1.025) Urine Protein NEGATIVE (Negative) Urine Ketones NEGATIVE (NEGATIVE) Urine Blood NEGATIVE (0-5) [place]/ul Urine Nitrite NEGATIVE (NEGATIVE) Urine Bilirubin NEGATIVE (NEGATIVE) Urine Urobilinogen NORMAL (0-1) mg/dL Ur Leukocyte Esterase NEGATIVE (NEGATIVE) Urine Culture Reflexed NO (NO) Urine Glucose NEGATIVE (NEGATIVE) mg/dL Specimen Received [id number] - Progress Progress: improved Progress Note: patient was given IV fluids and states he does feel better and wants to go home. Patient without any dizziness, numbness, tingling or weakness prior to discharge. 10/20/17 00:32 Counseled pt/family regarding: lab results, diagnosis, rad results - Departure Time of Disposition: 00:33 Departure Disposition: Home Clinical Impression: Dizziness Condition: Stable Critical Care Time: No Referrals: KAN CHOWDHURY [Primary Care Provider] - Instructions: Dizziness, Nonvertigo, (DC) Additional Instructions: follow-up with your doctor in 2-3 days. Return for worse dizziness, tingling, weakness, headache, blurred vision, confusion or any problems
[2017-10-19 22:09] LABS: BASOPHIL % 0.3 % (0.0-0.4); Basophil (Absolute #) 0.02 (0-0.4); Eosinophil % 0.7 % (0.00-5.0); Eosinophil (Absolute #) 0.04 (0-0.5); Granulocyte Absolute (ANC) 4.27 (1.4-6.9); Granulocytes % 71.3 % (36.0-66.0); Hematocrit 35.2 % (35-47); Hemoglobin 11.7 gm/dl (12.0-16.0); Lymphocyte (Absolute #) 1.23 (1.0-4.6); Lymphocytes % 20.5 % (24.0-44.0); Mean Cell Volume 80.9 fl (78-100); Mean Corpuscular Hgb Concent. 33.2 g/dl (32-36); Mean Platelet Volume 8.8 fl (6-9.5); Monocyte (Absolute #) 0.43 (0.0-1.3); Monocytes % 7.2 % (0.0-12.0); Platelet Count 291 K/mm3 (150-450); Red Blood Count 4.35 M/mm3 (4.1-5.4); Red Cell Distribution Width 15.7 % (11.5-14.0)
[2017-10-19 22:18] LABS: Mean Corpuscular Hemoglobin 26.8 pg (26-32)
[2017-10-19] MEDS ORDERED: Sodium Chloride 0.9% 1000 ML 1,000 ML ONE (22:25)
[2017-10-19 22:51] LABS: ALBUMIN 3.7 g/dL (3.5-5.0); ALKALINE PHOSPHATASE 106 U/L (38-126); ANION GAP 11.7 MEQ/L (5-15); BLOOD UREA NITROGEN 22 mg/dL (7-17); CHLORIDE 99 mmol/L (98-107); Calcium 9.3 mg/dL (8.4-10.2); Carbon Dioxide 24 mmol/L (22-30); Glucose 127 mg/dL (74-106); Potassium 4.3 mmol/L (3.5-5.1); SGOT/AST 29 U/L (14-36); SGPT/ALT 16 U/L (0-35); SODIUM 130 mmol/L (137-145); Total Protein 7.1 g/dL (6.3-8.2)
[2017-10-20 00:16] LABS: Appearance CLEAR (CLEAR); Bilirubin NEGATIVE (NEGATIVE); Blood NEGATIVE Ery/ul (0-5); Glucose NEGATIVE (NEGATIVE); Ketones NEGATIVE (NEGATIVE); Leukocyte Esterase NEGATIVE (NEGATIVE); Nitrite NEGATIVE (NEGATIVE); Protein,Urine Dip NEGATIVE (Negative); Urobilinogen NORMAL mg/dL (0-1)
[2017-10-20 01:04] VITALS: BP 139/88; PULSE 96; O2SAT 98
--- NOTE | 2017-10-20 10:04 | XRAY ---
Indication: Tachycardia. Comparison: August 20, 2017. PA/lateral chest unchanged again hyperinflated and clear with incidental hilar calcified granulomas. Heart is not enlarged. Bony thorax intact again with mild osteopenia and degenerative changes. Impression: Stable nonacute hyperinflated chest with chronic features.
--- NOTE | 2017-10-20 10:08 | XRAY ---
Indication: Dizziness, numbness, and right facial tingling. Atrial fibrillation. Multiple contiguous axial images obtained through the head without contrast. Comparison: August 21, 2014. Stable age-appropriate global atrophy and left frontal tiny calcified meningioma. No acute intracranial hemorrhage, abnormal extra-axial fluid collection, or mass effect. Fourth ventricle is midline without hydrocephalus. [place]-white matter differentiation preserved. Bony calvarium intact. Visualized paranasal sinuses and mastoid air cells are clear. Impression: Stable left frontal calcified meningioma. No new or acute intracranial abnormalities. Comment: Preliminary interpretation was made by [facility]. No discrepancy. CTDI 70.77
== END 2017-10-20 00:58 | disposition home or self-care (01) ==
LOC: ED 21:12
DX: R42 Dizziness and giddiness (principal); Z79.01 Long term (current) use of anticoagulants; Z79.899 Other long term (current) drug therapy
CPT/HCPCS: 36000; 36415; 70450; 71046; 80053; 81002; 83880; 84484; 85025; 93005; 93041; 96360; 99284

== ENCOUNTER 2018-01-07 17:20 | Observation (INO) | payer MEDICARE ==
--- NOTE | 2018-01-07 17:58 | ERPHSYRPT ---
- History of Present Illness Time Seen by Provider: 01/07/18 17:55 Source: patient, family Physician History: 87 y/o white female with known atrial fibrillation on warfarin and metoprolol presents with dizziness and rapid heart rate. pt seen at [facility] last week for same issue. pt denies cp and denies soa. pt denies abd pain. Timing/Duration: today Activities at Onset: none Quality: other (dizziness and rapid rate) Location: substernal Chest Pain Radiation: no radiation Severity of Pain-Max: none Severity of Pain-Current: none Modifying Factors: Improves With: nothing Nitro Today/Relief: no nitro taken today Aspirin Treatment Today: no aspirin today (pt on coumadin) Associated Symptoms: No nausea, No vomiting, No abdominal pain, No shortness of breath, No chest pain, No fever, No headaches, No loss of appetite, No malaise, No rash, No syncope, No seizure, No weakness Allergies/Adverse Reactions: doxycycline Allergy (Severe, Verified 01/07/18 18:01) Blisters blisters in throat and difficulty swallowing Penicillins Allergy (Intermediate, Verified 01/07/18 18:01) Swelling of Face Sulfa (Sulfonamide Antibiotics) [Sulfa(Sulfonamide Antibiotics)] Allergy ( Intermediate, Verified 01/07/18 18:01) Swelling of Face amoxicillin [Amoxicillin] Allergy (Verified 01/07/18 18:01) ciprofloxacin [From Cipro] Adverse Reaction (Intermediate, Verified 01/07/18 18: 01) weak and sick weak and sick ciprofloxacin HCl [From Cipro] Adverse Reaction (Intermediate, Verified 18:01) weak and sick weak and sick codeine [Codeine] Adverse Reaction (Mild, Verified 01/07/18 18:01) Nausea Home Medications: Warfarin Sodium [Coumadin] 3 mg PO DAILY 06/25/13 [History] Metoprolol Succinate [Toprol Xl] 50 mg PO DAILY 05/06/16 [History] Albuterol Sulfate [Proair Hfa] 8.5 gm IH BID 07/27/16 [History] Hx Tetanus, Diphtheria Vaccination/Date Given: No Hx Influenza Vaccination/Date Given: Yes Hx Pneumococcal Vaccination/Date Given: Yes - Review of Systems Constitutional: Weakness Eyes: No Symptoms Ears, Nose, & Throat: No Symptoms Respiratory: No Symptoms Cardiac: Palpitations, No Chest Pain, No Edema, No Syncope, No Orthopnea Abdominal/Gastrointestinal: No Symptoms, No Abdominal Pain, No Nausea, No Vomiting, No Diarrhea Genitourinary Symptoms: No Symptoms, No Dysuria, No Frequency, No Hematuria Musculoskeletal: No Symptoms Skin: No Symptoms Neurological: Dizziness Psychological: No Symptoms Endocrine: No Symptoms Hematologic/Lymphatic: No Symptoms Immunological/Allergic: No Symptoms All Other Systems: Reviewed and Negative - Past Medical History Pertinent Past Medical History: Yes Neurological History: No Pertinent History ENT History: Cataracts, Other Cardiac History: Arrhythmia, Deep Vein Thrombosis Respiratory History: Asthma Endocrine Medical History: No Pertinent History Musculoskeletal History: Osteoporosis GI Medical History: Polyps History: Other Psycho-Social History: No Pertinent History Female Reproductive Disorders: No Pertinent History Other Medical History: CHRONIC AFIB, nose bleeds, kidney infection - Past Surgical History Past Surgical History: Yes Neuro Surgical History: No Pertinent History Cardiac: No Pertinent History Respiratory: No Pertinent History Gastrointestinal: Other Genitourinary: Other Musculoskeletal: Orthopedic Surgery Female Surgical History: Hysterectomy Other Surgical History: colonoscopy, bladder tie up, hysterectomy is partial,. back surgery x 2, tonsilectomy - Social History Smoking Status: Never smoker Exposure to second hand smoke: No Drug Use: none Patient Lives Alone: Yes - Nursing Vital Signs Nursing Vital Signs: Initial Vital Signs Temperature 97.0 F 01/07/18 17:25 Pulse Rate 128 H 01/07/18 17:25 Respiratory Rate 18 01/07/18 17:25 Blood Pressure 143/107 01/07/18 17:25 O2 Sat by Pulse Oximetry 98 01/07/18 17:25 Pain Scale Pain Intensity 0 - Physical Exam General Appearance: no apparent distress, alert, anxiety Eye Exam: PERRL/EOMI Ears, Nose, Throat Exam: normal ENT inspection, moist mucous membranes Neck Exam: normal inspection, non-tender, supple, full range of motion Respiratory Exam: normal breath sounds, lungs clear, No chest tenderness, No respiratory distress, No diminished breath sounds, No accessory muscle use, No rhonchi, No wheezing, No stridor Cardiovascular Exam: tachycardia, irregular Gastrointestinal/Abdomen Exam: soft, normal bowel sounds, No tenderness, No guarding, No ecchymosis Pelvic Exam: not done Rectal Exam: not done Back Exam: normal inspection, normal range of motion, No CVA tenderness, No vertebral tenderness Extremity Exam: normal inspection, normal range of motion, pelvis stable Neurologic Exam: alert, oriented x 3, cooperative, compliance monitor II-XII nml as tested Skin Exam: normal color, warm, dry Lymphatic Exam: No adenopathy SpO2 Interpretation: normal Oxygen Delivery: Room Air - Course Nursing assessment & vital signs reviewed: Yes EKG Interpreted by Me: RATE (118), A-fib, NORMAL AXIS, Other (pts ekg today is not sig different than ekg of 10/19/17 except for today rh 118 and hr 10/19/17 was 97) Ordered Tests: Active Orders 24 hr Category Date Time Status Clean Catch Urine Specimen STAT Care 01/07/18 17:58 Active EKG-ER Only STAT Care 01/07/18 17:58 Active IV Insertion STAT Care 01/07/18 17:58 Active CHEST 1 VIEW (PORTABLE) Stat Exams 01/07/18 17:59 Taken CBC W DIFF Stat Lab 01/07/18 17:50 Completed CMP Stat Lab 01/07/18 17:50 Completed NT PRO BNP Stat Lab 01/07/18 17:50 Completed PROTIME WITH INR Stat Lab 01/07/18 17:50 Completed TROPONIN Q3H Lab 01/07/18 17:50 Completed TROPONIN Q3H Lab 01/07/18 23:00 Ordered UA W/RFX UR CULTURE Stat Lab 01/07/18 19:52 Completed Transfer Order Routine Transfer 01/07/18 Ordered Medication Summary Discontinued Medications Generic Name Dose Route Start Last Admin Trade Name Freq PRN Reason Stop Dose Admin Diltiazem HCl 15 mg 01/07/18 18:38 01/07/18 18:48 Cardizem Iv 50 Mg/10 Ml IV 01/07/18 18:39 15 mg STAT ONE Administration Diltiazem HCl Confirm 01/07/18 18:46 Cardizem Iv 50 Mg/10 Ml Administered 01/07/18 18:47 Dose 50 mg IV .STK-MED ONE Lab/Rad Data: Laboratory Result Diagrams 01/07/18 17:50 01/07/18 17:50 Laboratory Results 01/07/18 01/07/18 01/07/18 Range/Units 19:52 17:50 17:50 WBC (4.0-10.5) K/mm3 RBC (4.1-5.4) M/mm3 Hgb (12.0-16.0) gm/dl Hct (35-47) % MCV (78-100) fl MCH (26-32) pg MCHC (32-36) g/dl RDW (11.5-14.0) % Plt Count (150-450) K/mm3 MPV (6-9.5) fl Gran % (36.0-66.0) % Eos # (Auto) (0-0.5) Absolute Lymphs (auto) (1.0-4.6) Absolute Monos (auto) (0.0-1.3) Lymphocytes % (24.0-44.0) % Monocytes % (0.0-12.0) % Eosinophils % (0.00-5.0) % Basophils % (0.0-0.4) % Absolute Granulocytes (1.4-6.9) Basophils # (0-0.4) PT 14.4 H (9.95-12.35) SECONDS INR 1.24 (0.8-3.0) Sodium (137-145) mmol/L Potassium (3.5-5.1) mmol/L Chloride (98-107) mmol/L Carbon Dioxide (22-30) mmol/L Anion Gap (5-15) MEQ/L BUN (7-17) mg/dL Creatinine (0.52-1.04) mg/dL Estimated GFR ML/MIN Glucose (74-106) mg/dL Calcium (8.4-10.2) mg/dL Total Bilirubin (0.2-1.3) mg/dL AST (14-36) U/L ALT (0-35) U/L Alkaline Phosphatase (38-126) U/L Troponin I < 0.012 (0.000-0.034) ng/mL NT-Pro-B Natriuret Pep (0-1800) pg/mL Serum Total Protein (6.3-8.2) g/dL Albumin (3.5-5.0) g/dL Urine Color YELLOW (YELLOW) Urine Appearance CLEAR (CLEAR) Urine pH 6.0 (5-6) Ur Specific [place] 1.008 (1.005-1.025) Urine Protein NEGATIVE (Negative) Urine Ketones NEGATIVE (NEGATIVE) Urine Blood NEGATIVE (0-5) Cel[place]/ul Urine Nitrite NEGATIVE (NEGATIVE) Urine Bilirubin NEGATIVE (NEGATIVE) Urine Urobilinogen NEGATIVE (0-1) mg/dL Ur Leukocyte Esterase TRACE (NEGATIVE) Urine WBC (Auto) 0-2 (0-5) /HPF Urine RBC (Auto) NONE (0-2) /HPF U Epithel Cells (Auto) NONE SEEN (FEW) /HPF Urine Mucus (Auto) SLIGHT (NEGATIVE) /HPF Urine Culture Reflexed NO (NO) Urine Glucose NEGATIVE (NEGATIVE) mg/dL 01/07/18 01/07/18 Range/Units 17:50 17:50 WBC 8.2 (4.0-10.5) K/mm3 RBC 4.27 (4.1-5.4) M/mm3 Hgb 11.7 L (12.0-16.0) gm/dl Hct 36.3 (35-47) % MCV 85.0 (78-100) fl MCH 27.4 (26-32) pg MCHC 32.2 (32-36) g/dl RDW 16.6 H (11.5-14.0) % Plt Count 324 (150-450) K/mm3 MPV 8.8 (6-9.5) fl Gran % 68.1 H (36.0-66.0) % Eos # (Auto) 0.13 (0-0.5) Absolute Lymphs (auto) 1.63 (1.0-4.6) Absolute Monos (auto) 0.85 (0.0-1.3) Lymphocytes % 19.8 L (24.0-44.0) % Monocytes % 10.3 (0.0-12.0) % Eosinophils % 1.6 (0.00-5.0) % Basophils % 0.2 (0.0-0.4) % Absolute Granulocytes 5.59 (1.4-6.9) Basophils # 0.02 (0-0.4) PT (9.95-12.35) SECONDS INR (0.8-3.0) Sodium 136 L (137-145) mmol/L Potassium 4.4 (3.5-5.1) mmol/L Chloride 101 (98-107) mmol/L Carbon Dioxide 26 (22-30) mmol/L Anion Gap 12.6 (5-15) MEQ/L BUN 21 H (7-17) mg/dL Creatinine 0.98 (0.52-1.04) mg/dL Estimated GFR 57.3 ML/MIN Glucose 93 (74-106) mg/dL Calcium 9.4 (8.4-10.2) mg/dL Total Bilirubin 0.50 (0.2-1.3) mg/dL AST 31 (14-36) U/L ALT 17 (0-35) U/L Alkaline Phosphatase 115 (38-126) U/L Troponin I (0.000-0.034) ng/mL NT-Pro-B Natriuret Pep 2180 H (0-1800) pg/mL Serum Total Protein 7.3 (6.3-8.2) g/dL Albumin 3.9 (3.5-5.0) g/dL Urine Color (YELLOW) Urine Appearance (CLEAR) Urine pH (5-6) Ur Specific [place] (1.005-1.025) Urine Protein (Negative) Urine Ketones (NEGATIVE) Urine Blood (0-5) Celestino/ul Urine Nitrite (NEGATIVE) Urine Bilirubin (NEGATIVE) Urine Urobilinogen (0-1) mg/dL Ur Leukocyte Esterase (NEGATIVE) Urine WBC (Auto) (0-5) /HPF Urine RBC (Auto) (0-2) /HPF U Epithel Cells (Auto) (FEW) /HPF Urine Mucus (Auto) (NEGATIVE) /HPF Urine Culture Reflexed (NO) Urine Glucose (NEGATIVE) mg/dL cxr- chronic changes no acute process. - Progress Progress: improved, re-examined Air Movement: good Progress Note: 01/07/18 20:[address] henry. will bring into hospital observation telemetry. no cardiac drip. give cardizem 60mg po tid. Blood Culture(s) Obtained: No Antibiotics given: No Discussed with : Karime Counseled pt/family regarding: lab results, diagnosis, rad results - Departure Time of Disposition: 20:41 Departure Disposition: Observation Clinical Impression: Atrial fibrillation with rapid ventricular response Condition: Stable Critical Care Time: Yes Critical Care Time(excluding separately billable procedures): 30-74 minutes Referrals: KAN HENRY [Primary Care Provider] -
[2018-01-07 18:15] LABS: BASOPHIL % 0.2 % (0.0-0.4); Basophil (Absolute #) 0.02 (0-0.4); Eosinophil % 1.6 % (0.00-5.0); Eosinophil (Absolute #) 0.13 (0-0.5); Granulocyte Absolute (ANC) 5.59 (1.4-6.9); Granulocytes % 68.1 % (36.0-66.0); Hematocrit 36.3 % (35-47); Hemoglobin 11.7 gm/dl (12.0-16.0); Lymphocyte (Absolute #) 1.63 (1.0-4.6); Lymphocytes % 19.8 % (24.0-44.0); Mean Corpuscular Hemoglobin 27.4 pg (26-32); Mean Corpuscular Hgb Concent. 32.2 g/dl (32-36); Mean Platelet Volume 8.8 fl (6-9.5); Monocyte (Absolute #) 0.85 (0.0-1.3); Monocytes % 10.3 % (0.0-12.0); Platelet Count 324 K/mm3 (150-450); Red Blood Count 4.27 M/mm3 (4.1-5.4); Red Cell Distribution Width 16.6 % (11.5-14.0); White Blood Count 8.2 K/mm3 (4.0-10.5)
[2018-01-07 18:36] LABS: INR 1.24 (0.8-3.0)
[2018-01-07] MEDS ORDERED: Cardizem IV 50 MG/10 ML IV ONE ×2 (18:38→18:46)
[2018-01-07 18:40] LABS: ALBUMIN 3.9 g/dL (3.5-5.0); ANION GAP 12.6 MEQ/L (5-15); BILIRUBIN,TOTAL 0.5 mg/dL (0.2-1.3); Calcium 9.4 mg/dL (8.4-10.2); Creatinine 1 0.98 mg/dL (0.52-1.04); Potassium 4.4 mmol/L (3.5-5.1); Total Protein 7.3 g/dL (6.3-8.2)
[2018-01-07 20:09] LABS: Appearance CLEAR (CLEAR); Bilirubin NEGATIVE (NEGATIVE); Blood NEGATIVE Ery/ul (0-5); Glucose NEGATIVE (NEGATIVE); Ketones NEGATIVE (NEGATIVE); Leukocyte Esterase TRACE (NEGATIVE); Nitrite NEGATIVE (NEGATIVE); Protein,Urine Dip NEGATIVE (Negative); Specific Gravity 1.008 (1.005-1.025); Urobilinogen NEGATIVE mg/dL (0-1)
[2018-01-07] MEDS ORDERED: Cardizem 30 MG PO ONE (21:42)
[2018-01-07] MEDS ORDERED: PROVENTIL COMMON CANISTER IH PRN (21:58)
[2018-01-08 05:36] LABS: BASOPHIL % 0.4 % (0.0-0.4); Basophil (Absolute #) 0.03 (0-0.4); Eosinophil % 3.3 % (0.00-5.0); Eosinophil (Absolute #) 0.23 (0-0.5); Granulocytes % 65.6 % (36.0-66.0); Hematocrit 32.3 % (35-47); Hemoglobin 10.4 gm/dl (12.0-16.0); Lymphocyte (Absolute #) 1.34 (1.0-4.6); Lymphocytes % 19.1 % (24.0-44.0); Mean Cell Volume 84.3 fl (78-100); Mean Corpuscular Hgb Concent. 32.2 g/dl (32-36); Mean Platelet Volume 8.7 fl (6-9.5); Monocyte (Absolute #) 0.81 (0.0-1.3); Monocytes % 11.6 % (0.0-12.0); Platelet Count 295 K/mm3 (150-450); Red Blood Count 3.83 M/mm3 (4.1-5.4); Red Cell Distribution Width 16.3 % (11.5-14.0)
[2018-01-08 05:37] LABS: Mean Corpuscular Hemoglobin 27.1 pg (26-32)
[2018-01-08] MEDS: Cardizem 30 MG PO SCH ×2 (06:02→08:31)
[2018-01-08 06:05] LABS: ALBUMIN 3.2 g/dL (3.5-5.0); ALKALINE PHOSPHATASE 91 U/L (38-126); BLOOD UREA NITROGEN 20 mg/dL (7-17); CHLORIDE 103 mmol/L (98-107); Calcium 8.7 mg/dL (8.4-10.2); Carbon Dioxide 27 mmol/L (22-30); Creatinine 1 0.71 mg/dL (0.52-1.04); Glucose 90 mg/dL (74-106); NT PRO BNP 1690 pg/mL (0-1800); Potassium 4.1 mmol/L (3.5-5.1); SGOT/AST 29 U/L (14-36); SGPT/ALT 16 U/L (0-35); SODIUM 135 mmol/L (137-145); Total Protein 6.3 g/dL (6.3-8.2)
[2018-01-08] MEDS ORDERED: ENOXAPARIN SODIUM SQ ONE (07:52)
[2018-01-08] MEDS ORDERED: Ventolin Hfa MDI IH PRN (08:01)
--- NOTE | 2018-01-08 08:38 | XRAY ---
Indication: Chest pain and short of breath. Comparison: October 19, 2017. Portable chest unchanged again hyperinflated and clear. Heart and mediastinal structures within normal limits. Bony thorax intact again with mild osteopenia and degenerative changes. No new/acute findings. Impression: Stable nonacute hyperinflated chest with chronic features.
[2018-01-08] MEDS ORDERED: Coumadin 3 MG PO ONE (09:00)
[2018-01-08] MEDS ORDERED: WARFARIN SODIUM 3 MG PO SCH (10:00)
[2018-01-08] MEDS ORDERED: Toprol Xl 50 MG PO SCH (10:00)
[2018-01-08 11:48] VITALS: BP 106/58; PULSE 61; O2SAT 95
--- NOTE | 2018-01-08 13:46 | SSS ---
DISCHARGE DIAGNOSIS: ATRIAL FIBRILLATION WITH RAPID VENTRICULAR RESPONSE. HISTORY: The patient is an 87 year-old white female with history of chronic atrial fibrillation. She has been a little forgetful in taking her Coumadin and her pro-time got a little bit low. We had asked her to increase her Coumadin to 3 but she got to feeling a little chest discomfort with shortness of breath and presented herself to the emergency room for evaluation and management where she was found to be in atrial fibrillation with rapid ventricular response again. The patient was given 15 mg of Cardizem which did get heart rate under 100 but she was felt the need to be observed overnight to be sure that she stayed out of trouble. PAST MEDICAL/SURGICAL HISTORY: Significant otherwise for asthma, osteoporosis. She had history of polyps and she had hysterectomy, colonoscopy, bladder tie up and back surgery, tonsillectomy. HOME MEDICATIONS: Currently are warfarin 3 mg a day, metoprolol 50 mg extended release daily, Albuterol PRN. ALLERGIES: AMOXICILLIN, CIPROFLOXACIN, CODEINE, DOXYCYCLINE, PENICILLIN, SULFA. PHYSICAL EXAMINATION: Revealed a well nourished, well developed elderly white female who is in surprisingly good shape. Her temperature is 97.0F, pulse 128 on entry to the emergency room, respiratory rate 18, blood pressure 143/107. O2 saturation 98% on room air. HEENT: Normocephalic, atraumatic. Pupils equal round reactive to light. Extraocular movements intact. Oropharynx is slightly dry. NECK: Supple without lymphadenopathy, thyromegaly or JVD. CHEST: Clear to auscultation. HEART: The heart is irregular but on the monitor the rate is less than 100 and she is currently sitting up in a chair and conversant. ABDOMEN: Soft without palpable masses. EXTREMITIES: Without clubbing, cyanosis or edema. NEUROLOGIC: The patient is alert and oriented x3. No focal deficits noted. LAB DATA AND TESTS: EKG initially showed atrial fibrillation with rapid ventricular response. She has been on telemetry overnight with heart rate under 100 all night since her admission. She was given additional Cardizem p.o. at 60 mg one time since this day. The patient's laboratory studies otherwise showed her glucose nonfasting to be 93, BUN 21, creatinine 0.98. Sodium slightly low at 136. Electrolytes otherwise normal. ProBNP was slightly elevated at 2,180. Her international normalized ratio was 1.24. Hemoglobin 11.7, white blood cell count 8,200, PLT count 324,000. UA showed specific gravity 1.008 and otherwise essentially normal. Troponin less than 0.012 on two separate blood draws. HOSPITAL COURSE: The patient was admitted to the medicine [facility] on telemetry. She was given an additional dose of Cardizem as discussed above. She has been pain free and in good spirits this morning and felt to be ready for discharge home again. We will give her Lovenox injection of 30 mg subcu prior to her discharge home to cover her while we are getting her Coumadin up. She will receive 6 mg of Coumadin also prior to her discharge. She was instructed to take 3 mg at home. She has a follow up appointment to see me in two days in the office which we will check her pro-time again prior to her being seen that day. She is to return to the hospital if she has any problems with chest discomfort or shortness of breath or any other problems in the interim.
[2018-01-08] MEDS ORDERED: Coumadin 1 MG PO SCH (18:00)
== END 2018-01-08 12:30 | disposition home or self-care (01) ==
LOC: ED 17:20 → MED SURG 21:38
PROVIDERS: ADMIT Family Medicine; ATTEND Family Medicine
DX: I48.91 Unspecified atrial fibrillation (principal); Z79.01 Long term (current) use of anticoagulants; J45.909 Unspecified asthma, uncomplicated; M81.0 Age-related osteoporosis without current pathological fracture; Z86.010 Personal history of colon polyps; Z79.899 Other long term (current) drug therapy
CPT/HCPCS: 36000; 36415; 71045; 80053; 81001; 83880; 84484; 85025; 85610; 93005; 93268; 94762; 96374; 99285; J1650; A9270-GY; G0378

== ENCOUNTER 2018-03-03 15:49 | Emergency (ER) | payer MEDICARE ==
[2018-03-03 16:55] LABS: INR 1.41 (0.8-3.0)
[2018-03-03 16:57] LABS: BASOPHIL % 0.1 % (0.0-0.4); Basophil (Absolute #) 0.01 (0-0.4); Eosinophil % 0.5 % (0.00-5.0); Eosinophil (Absolute #) 0.04 (0-0.5); Granulocyte Absolute (ANC) 6.61 (1.4-6.9); Hemoglobin 11.8 gm/dl (12.0-16.0); Lymphocyte (Absolute #) 1.02 (1.0-4.6); Lymphocytes % 12.7 % (24.0-44.0); Mean Cell Volume 83.7 fl (78-100); Mean Corpuscular Hgb Concent. 31.9 g/dl (32-36); Monocyte (Absolute #) 0.38 (0.0-1.3); Monocytes % 4.7 % (0.0-12.0); Platelet Count 329 K/mm3 (150-450); Red Blood Count 4.42 M/mm3 (4.1-5.4); Red Cell Distribution Width 15.5 % (11.5-14.0); White Blood Count 8.1 K/mm3 (4.0-10.5)
[2018-03-03 16:58] LABS: PTT 30.8 SECONDS (25.3-37.0)
[2018-03-03 17:00] LABS: ALKALINE PHOSPHATASE 120 U/L (38-126); AMYLASE 88 U/L (30-110); ANION GAP 12.8 MEQ/L (5-15); BLOOD UREA NITROGEN 23 mg/dL (7-17); CHLORIDE 100 mmol/L (98-107); Calcium 9.2 mg/dL (8.4-10.2); Carbon Dioxide 25 mmol/L (22-30); Creatinine 1 0.75 mg/dL (0.52-1.04); Glucose 107 mg/dL (74-106); LIPASE 160 U/L (23-300); Potassium 4.3 mmol/L (3.5-5.1); SGOT/AST 41 U/L (14-36); SGPT/ALT 21 U/L (0-35); SODIUM 134 mmol/L (137-145); Total Protein 7.5 g/dL (6.3-8.2)
[2018-03-03 17:02] LABS: Mean Corpuscular Hemoglobin 26.6 pg (26-32)
--- NOTE | 2018-03-03 17:07 | XRAY ---
Indication: Chest pain. Comparison: January 07, 2018. Portable chest remains hyperinflated and clear. Heart is not enlarged for AP portable technique again with hilar calcified nodes. Bony thorax intact again with mild osteopenia and degenerative changes. Impression: Stable nonacute hyperinflated chest with chronic features.
--- NOTE | 2018-03-03 18:27 | ERPHSYRPT ---
<SEGUNDODAPHNIE THORNELEY - Last Filed: 03/03/18 19:34> - History of Present Illness Time Seen by Provider: 03/03/18 18:17 Historian: patient Exam Limitations: no limitations Patient Subjective Stated Complaint: PT states "I have had chest pain on and off for quite awhile now, I have afib. I have recently been lightheaded and just do not feel right." Triage Nursing Assessment: Pt alert and oriented X 3, skin pwd. PT ambulates with an upright steady gait, able to speak in clear full sentences. PT in no apparent respiratory distress. Physician History: PATIENT ARRIVES WITH COMPLAINT OF PAIN IN THE ANTERIOR CHEST DESCRIBED HEAVINESS OCCURRING AT AROUND 10:00 this morning and lasting 5 minutes. Pain has resolved patient states she just felt sick. She denies shortness of breath, nausea, or vomiting. Past medical history includes cataracts asthma arrhythmia DVT polyps osteoporosis chronic atrial fibrillat nosebleed kidney infection Past surgical history includes hysterectomy orthopedic surgery colonoscopy bladder surgery partial hysterectomy back surgery tonsillectomy Timing/Duration: today (10:00 this morning) Activities at Onset: none Quality: other (heaviness) Location: substernal Chest Pain Radiation: no radiation Severity of Pain-Max: moderate Severity of Pain-Current: none Modifying Factors: Improves With: nothing Associated Symptoms: No nausea, No vomiting, No palpitations, No heartburn, No abdominal pain, No shortness of breath, No cough, No hurts to breathe ([place] area), No diaphoresis, No chills, No fever, No fatigue, No weakness, No swelling /lump in chest, No syncope, No rash, No headache, No dizziness, No edema, No back pain Prior Chest Pain/Cardiac Workup: no prior chest pain (chest pain off and on) Nitro Today/Relief: no nitro taken today Aspirin Treatment Today: no aspirin today (patient on Coumadin) Allergies/Adverse Reactions: doxycycline Allergy (Severe, Verified 01/07/18 18:01) Blisters blisters in throat and difficulty swallowing Penicillins Allergy (Intermediate, Verified 01/07/18 18:01) Swelling of Face Sulfa (Sulfonamide Antibiotics) [Sulfa(Sulfonamide Antibiotics)] Allergy ( Intermediate, Verified 01/07/18 18:01) Swelling of Face amoxicillin [Amoxicillin] Allergy (Verified 01/07/18 18:01) ciprofloxacin [From Cipro] Adverse Reaction (Intermediate, Verified 01/07/18 18: 01) weak and sick weak and sick ciprofloxacin HCl [From Cipro] Adverse Reaction (Intermediate, Verified 18:01) weak and sick weak and sick codeine [Codeine] Adverse Reaction (Mild, Verified 01/07/18 18:01) Nausea Home Medications: Warfarin Sodium [Coumadin] 3 mg PO DAILY 06/25/13 [History] Metoprolol Succinate [Toprol Xl] 50 mg PO DAILY 05/06/16 [History] Albuterol Sulfate [Proair Hfa] 8.5 gm IH BID PRN PRN 07/27/16 [History] Hx Tetanus, Diphtheria Vaccination/Date Given: No Hx Influenza Vaccination/Date Given: Yes Hx Pneumococcal Vaccination/Date Given: No Immunizations Up to Date: Yes - Review of Systems Constitutional: No Fever, No Chills Eyes: No Symptoms Ears, Nose, & Throat: No Symptoms Respiratory: No Cough, No Dyspnea Cardiac: Chest Pain, No Edema, No Palpitations, No Orthopnea Abdominal/Gastrointestinal: No Abdominal Pain, No Nausea, No Vomiting, No Diarrhea Genitourinary Symptoms: No Dysuria Musculoskeletal: No Back Pain, No Neck Pain Skin: No Rash Neurological: Headache, No Dizziness, No Focal Weakness, No Sensory Changes Psychological: No Symptoms (Block attic is not look) Endocrine: No Symptoms All Other Systems: Reviewed and Negative - Past Medical History Pertinent Past Medical History: Yes Neurological History: No Pertinent History ENT History: Cataracts, Other Cardiac History: Arrhythmia, Deep Vein Thrombosis Respiratory History: Asthma Endocrine Medical History: No Pertinent History Musculoskeletal History: Osteoporosis GI Medical History: Polyps History: Other Psycho-Social History: No Pertinent History Female Reproductive Disorders: No Pertinent History Other Medical History: CHRONIC AFIB, nose bleeds, kidney infection - Past Surgical History Past Surgical History: Yes Neuro Surgical History: No Pertinent History Cardiac: No Pertinent History Respiratory: No Pertinent History Gastrointestinal: Other Genitourinary: Other Musculoskeletal: Orthopedic Surgery Female Surgical History: Hysterectomy Other Surgical History: colonoscopy, bladder tie up, hysterectomy is partial,. back surgery x 2, tonsilectomy - Social History Smoking Status: Never smoker Exposure to second hand smoke: Yes Drug Use: none Patient Lives Alone: Yes - Female History Hx Now: No - Nursing Vital Signs Nursing Vital Signs: Initial Vital Signs Temperature 97.8 F 03/03/18 15:50 Pulse Rate 82 03/03/18 15:50 Respiratory Rate 18 03/03/18 15:50 Blood Pressure 150/95 03/03/18 15:50 O2 Sat by Pulse Oximetry 99 03/03/18 15:50 Pain Scale Pain Intensity 0 - Physical Exam General Appearance: no apparent distress, alert Eye Exam: PERRL/EOMI, eyes nml inspection Ears, Nose, Throat Exam: normal ENT inspection, moist mucous membranes Neck Exam: normal inspection, non-tender, supple, full range of motion Respiratory Exam: normal breath sounds, lungs clear, No respiratory distress Cardiovascular Exam: regular rate/rhythm, normal heart sounds Gastrointestinal/Abdomen Exam: soft, No tenderness, No mass Back Exam: normal inspection, No CVA tenderness, No vertebral tenderness Extremity Exam: normal inspection, normal range of motion Neurologic Exam: alert, oriented x 3, cooperative, sign erector II-XII nml as tested, normal mood/affect, sensation nml, No motor deficits Skin Exam: normal color, warm, dry SpO2 Interpretation: normal (97%) SpO2: 97 Oxygen Delivery: Room Air - Course Nursing assessment & vital signs reviewed: Yes EKG Interpreted by Me: RATE (84 bpm), A-fib, NORMAL AXIS, Other (EKG: Atrial fibrillation, 85 bpm, normal axis, no acute ST or T wave changes noted) - Radiology Exams Chest X-ray Interpretation: Discussed w/ radiologist (chest x-ray: Stable, nonacute hyperinflated chest with chronic features) Ordered Tests: Active Orders 24 hr Category Date Time Status [place]eneer Taper STAT Care 03/03/18 16:44 Active EKG-ER Only STAT Care 03/03/18 16:43 Active IV Insertion STAT Care 03/03/18 16:51 Active Pulse Oximetry (ED) STAT Care 03/03/18 16:43 Active CHEST 1 VIEW (PORTABLE) Stat Exams 03/03/18 16:44 Completed CHEST WITH CONTRAST [CT] Stat Exams 03/03/18 19:07 Taken AMYLASE Stat Lab 03/03/18 16:00 Completed CBC W DIFF Stat Lab 03/03/18 16:00 Completed CMP Stat Lab 03/03/18 16:00 Completed D-DIMER QUANTITATION Stat Lab 03/03/18 16:00 Completed LIPASE Stat Lab 03/03/18 16:00 Completed PROTIME WITH INR Stat Lab 03/03/18 16:00 Completed PTT Stat Lab 03/03/18 16:00 Completed TROPONIN Q3H Lab 03/03/18 16:45 Completed TROPONIN Q3H Lab 03/03/18 19:45 Completed TROPONIN Q3H Lab 03/03/18 20:15 Received TROPONIN Q3H Lab 03/04/18 01:45 Ordered TROPONIN Q3H Lab 03/04/18 04:45 Ordered Lab/Rad Data: Laboratory Result Diagrams 03/03/18 16:00 03/03/18 16:00 Laboratory Results 03/03/18 03/03/18 03/03/18 Range/Units 19:45 16:45 16:00 WBC (4.0-10.5) K/mm3 RBC (4.1-5.4) M/mm3 Hgb (12.0-16.0) gm/dl Hct (35-47) % MCV (78-100) fl MCH (26-32) pg MCHC (32-36) g/dl RDW (11.5-14.0) % Plt Count (150-450) K/mm3 MPV (6-9.5) fl Gran % (36.0-66.0) % Eos # (Auto) (0-0.5) Absolute Lymphs (auto) (1.0-4.6) Absolute Monos (auto) (0.0-1.3) Lymphocytes % (24.0-44.0) % Monocytes % (0.0-12.0) % Eosinophils % (0.00-5.0) % Basophils % (0.0-0.4) % Absolute Granulocytes (1.4-6.9) Basophils # (0-0.4) PT (9.95-12.35) SECONDS INR (0.8-3.0) APTT (25.3-37.0) SECONDS D-Dimer (215-500) ng/mL Sodium (137-145) mmol/L Potassium (3.5-5.1) mmol/L Chloride (98-107) mmol/L Carbon Dioxide (22-30) mmol/L Anion Gap (5-15) MEQ/L BUN (7-17) mg/dL Creatinine (0.52-1.04) mg/dL Estimated GFR ML/MIN Glucose (74-106) mg/dL Calcium (8.4-10.2) mg/dL Total Bilirubin (0.2-1.3) mg/dL AST (14-36) U/L ALT (0-35) U/L Alkaline Phosphatase (38-126) U/L Troponin I < 0.012 < 0.012 (0.000-0.034) ng/mL Serum Total Protein (6.3-8.2) g/dL Albumin (3.5-5.0) g/dL Amylase 88 (30-110) U/L Lipase 160 (23-300) U/L 03/03/18 03/03/18 03/03/18 Range/Units 16:00 16:00 16:00 WBC 8.1 (4.0-10.5) K/mm3 RBC 4.42 (4.1-5.4) M/mm3 Hgb 11.8 L (12.0-16.0) gm/dl Hct 37.0 (35-47) % MCV 83.7 (78-100) fl MCH 26.6 (26-32) pg MCHC 31.9 L (32-36) g/dl RDW 15.5 H (11.5-14.0) % Plt Count 329 (150-450) K/mm3 MPV 9.0 (6-9.5) fl Gran % 82.0 H (36.0-66.0) % Eos # (Auto) 0.04 (0-0.5) Absolute Lymphs (auto) 1.02 (1.0-4.6) Absolute Monos (auto) 0.38 (0.0-1.3) Lymphocytes % 12.7 L (24.0-44.0) % Monocytes % 4.7 (0.0-12.0) % Eosinophils % 0.5 (0.00-5.0) % Basophils % 0.1 (0.0-0.4) % Absolute Granulocytes 6.61 (1.4-6.9) Basophils # 0.01 (0-0.4) PT 16.4 H (9.95-12.35) SECONDS INR 1.41 (0.8-3.0) APTT 30.8 (25.3-37.0) SECONDS D-Dimer 955 H* (215-500) ng/mL Sodium 134 L (137-145) mmol/L Potassium 4.3 (3.5-5.1) mmol/L Chloride 100 (98-107) mmol/L Carbon Dioxide 25 (22-30) mmol/L Anion Gap 12.8 (5-15) MEQ/L BUN 23 H (7-17) mg/dL Creatinine 0.75 (0.52-1.04) mg/dL Estimated GFR > 60.0 ML/MIN Glucose 107 H (74-106) mg/dL Calcium 9.2 (8.4-10.2) mg/dL Total Bilirubin 0.60 (0.2-1.3) mg/dL AST 41 H (14-36) U/L ALT 21 (0-35) U/L Alkaline Phosphatase 120 (38-126) U/L Troponin I (0.000-0.034) ng/mL Serum Total Protein 7.5 (6.3-8.2) g/dL Albumin 4.0 (3.5-5.0) g/dL Amylase (30-110) U/L Lipase (23-300) U/L - Progress Progress: improved Progress Note: 03/03/18 19:34 87-year-old white female arrives with complaint of pain in her anterior chest at 10:00 lasting 5 minutes states she just felt "sick" no nausea no shortness of breath. Patient's EKG is remarkable for atrial fibrillation 84 bpm normal axis no acute ST or T wave changes are noted Chest x-ray remarkable for stable nonacute hyperinflated chest with chronic features, Patient's CBC chemistry essentially normal troponin within normal limits Unfortunately d-dimer is elevated Patient is low on her INR CTA of the chest has been ordered. Dr. Jensen will assume care of this patient secondary to shift change. Case has been discussed with Dr. Jensen. - Departure Clinical Impression: Chest pain, Subtherapeutic international normalized ratio (INR) Condition: Stable Referrals: KAN CHOWDHURY [Primary Care Provider] - Additional Instructions: You had intermittent chest pain. The laboratory results did not show anything serious with her heart at all today. Your INR is low and is subtherapeutic. Increase your warfarin from 3 mg to 4 mg of the next 2 days. Follow-up with your gravity meter operator on Saturday as scheduled. <MARIOLA JENSEN - Last Filed: 03/03/18 21:36> - CT Exams Chest CT Interpretation: Tele-radiologist Report (per Dr Love), No PE, Other (no acute findings.) - Progress Air Movement: good Progress Note: 03/03/18 20:06 Pt care discussed and care accepted from Dr Boyer at 19:30. 03/03/18 21:34 pt feels good and wants to go home. 03/03/18 21:34 repeat tropnins were negative. Blood Culture(s) Obtained: No Antibiotics given: No Counseled pt/family regarding: lab results, diagnosis, need for follow-up, rad results - Departure Time of Disposition: 21:34 Departure Disposition: Home Critical Care Time: No
[2018-03-03 21:53] VITALS: BP 152/90; PULSE 87; O2SAT 97
--- NOTE | 2018-03-04 08:41 | XRAY ---
Indication: Chest pain. Elevated d-dimer. History DVT. Multiple contiguous axial images obtained through the chest using 80 cc Isovue 370 contrast and PE protocol. Comparison: August 13, 2012. There is good opacification of the pulmonary arteries to include the lobar and segmental branches. No filling defect or pulmonary embolus. Heart is borderline enlarged. Aorta mildly etcher sclerotic without aneurysm/dissection. Again tiny subcarinal and left hilar calcified nodes. No pathologic mediastinal/hilar lymphadenopathy. Stable 1.1 cm left thyroid heterogeneous nodule. Examination of the lung parenchyma demonstrates minimal bilateral dependent atelectasis and minimal scattered subsegmental atelectasis/scarring. No suspicious pulmonary mass, infiltrate, or effusion. Limited upper abdomen again demonstrates fatty liver, hepatic/splenic calcified granulomas, and bilateral renal cysts. Impression: 1. Again negative pulmonary embolus. 2. No acute cardiopulmonary abnormalities. Scattered atelectasis/scarring. 3. Stable fatty liver, bilateral renal cysts, and evidence for old granulomatous disease. CT DI 10.00
== END 2018-03-03 21:54 | disposition home or self-care (01) ==
LOC: ED 15:49
DX: R07.9 Chest pain, unspecified (principal); I48.91 Unspecified atrial fibrillation; R79.1 Abnormal coagulation profile; Z79.01 Long term (current) use of anticoagulants; Z79.899 Other long term (current) drug therapy
CPT/HCPCS: 36000; 36415; 71045; 71260; 80053; 82150; 83690; 84484; 85025; 85379; 85610; 85730; 93005; 93041; 99284

== ENCOUNTER 2018-06-03 16:08 | Emergency (ER) | payer MEDICARE ==
[2018-06-03] MEDS ORDERED: Sodium Chloride 0.9% 1000 ML 1,000 ML IV SCH (16:30)
[2018-06-03] MEDS ORDERED: Sodium Chloride 0.9% 1000 ML 1,000 ML ONE (16:33)
--- NOTE | 2018-06-03 16:36 | ERPHSYRPT ---
- History of Present Illness Time Seen by Provider: 06/03/18 16:32 Source: patient, family Exam Limitations: no limitations Patient Subjective Stated Complaint: onset of weakness and dizziness this afternoon. has afib and has had these episodes several times. Triage Nursing Assessment: to room per w/c. skin w/d, color normal, resp easy. donald. is a/o times three at this time. daughter with patient today. daughter has early alzhiemers, lives alone but stays with daughter at night. Physician History: 87-year-old white female with history of atrial fibrillation, DVT who is on Coumadin. Arrives with complaint of feeling dizzy since 1:00 this afternoon. She denies any speech problems she is not having any problems moving or walking. She has no fevers no chest pain no shortness of breath no abdominal pain. Past medical history includes cataracts, arrhythmia, DVT, asthma, osteoporosis, polyps, atrial fibrillation, nosebleeds, kidney infection. Past surgical history includes hysterectomy, colonoscopy, bladder tie up, back surgeries Social history denies tobacco alcohol or illicit drug use Timing/Duration: today (1:00 this afternoon) Severity: mild Modifying Factors: Improves With: nothing Associated Symptoms: other (dizziness, states "feels dizzy in my head"), No nausea, No vomiting, No abdominal pain, No shortness of breath, No heartburn, No diaphoresis, No cough, No chills, No chest pain, No fever, No headaches, No loss of appetite, No malaise, No rash, No syncope, No seizure, No weakness Allergies/Adverse Reactions: doxycycline Allergy (Severe, Verified 06/03/18 16:22) Blisters blisters in throat and difficulty swallowing Penicillins Allergy (Intermediate, Verified 06/03/18 16:22) Swelling of Face Sulfa (Sulfonamide Antibiotics) [Sulfa(Sulfonamide Antibiotics)] Allergy ( Intermediate, Verified 06/03/18 16:22) Swelling of Face amoxicillin [Amoxicillin] Allergy (Verified 06/03/18 16:22) ciprofloxacin [From Cipro] Adverse Reaction (Intermediate, Verified 06/03/18 16: 22) weak and sick weak and sick ciprofloxacin HCl [From Cipro] Adverse Reaction (Intermediate, Verified 16:22) weak and sick weak and sick codeine [Codeine] Adverse Reaction (Mild, Verified 06/03/18 16:22) Nausea Home Medications: Warfarin Sodium [Coumadin] 3.5 mg PO UD 06/25/13 [History] Metoprolol Succinate [Toprol Xl] 50 mg PO DAILY 05/06/16 [History] Albuterol Sulfate [Proair Hfa] 8.5 gm IH BID PRN PRN 07/27/16 [History] Hx Tetanus, Diphtheria Vaccination/Date Given: No Hx Influenza Vaccination/Date Given: Yes Hx Pneumococcal Vaccination/Date Given: No - Review of Systems Constitutional: No Fever, No Chills Eyes: No Symptoms Ears, Nose, & Throat: No Symptoms Respiratory: No Cough, No Dyspnea Cardiac: No Chest Pain, No Edema, No Syncope Abdominal/Gastrointestinal: No Abdominal Pain, No Nausea, No Vomiting, No Diarrhea Genitourinary Symptoms: No Dysuria Musculoskeletal: No Back Pain, No Neck Pain Skin: No Rash Neurological: Dizziness, No Focal Weakness, No Gait Changes, No Headache, No Irritability, No Lethargy, No Paralysis, No Parasthesia, No Seizure, No Sensory Changes, No Speech Changes, No Tics, No Tremors, No Vertigo Psychological: No No Symptoms Endocrine: No Symptoms All Other Systems: Reviewed and Negative - Past Medical History Pertinent Past Medical History: Yes Neurological History: Alzheimer's Disease ENT History: Cataracts, Other Cardiac History: Arrhythmia, Deep Vein Thrombosis Respiratory History: Asthma Endocrine Medical History: No Pertinent History Musculoskeletal History: Osteoporosis GI Medical History: Polyps History: Other Psycho-Social History: No Pertinent History Female Reproductive Disorders: No Pertinent History Other Medical History: CHRONIC AFIB, nose bleeds, kidney infection - Past Surgical History Past Surgical History: Yes Neuro Surgical History: No Pertinent History Cardiac: No Pertinent History Respiratory: No Pertinent History Gastrointestinal: Other Genitourinary: Other Musculoskeletal: Orthopedic Surgery Female Surgical History: Hysterectomy Other Surgical History: colonoscopy, bladder tie up, hysterectomy is partial,. back surgery x 2, tonsilectomy - Social History Smoking Status: Never smoker Exposure to second hand smoke: Yes Drug Use: none Patient Lives Alone: Yes - Female History Hx Now: No - Nursing Vital Signs Nursing Vital Signs: Initial Vital Signs Temperature 97.3 F 06/03/18 16:11 Pulse Rate 89 06/03/18 16:11 Respiratory Rate 16 06/03/18 16:11 Blood Pressure 152/89 06/03/18 16:11 O2 Sat by Pulse Oximetry 99 06/03/18 16:11 Pain Scale Pain Intensity 0 - Physical Exam General Appearance: no apparent distress Eye Exam: PERRL/EOMI, eyes nml inspection Ears, Nose, Throat Exam: normal ENT inspection, TMs normal, pharynx normal, moist mucous membranes Neck Exam: normal inspection, non-tender, supple, full range of motion Respiratory Exam: normal breath sounds, lungs clear, No respiratory distress Cardiovascular Exam: capillary refill <2 sec, other (heart irregularly irregular ) Gastrointestinal/Abdomen Exam: soft, normal bowel sounds, No tenderness, No mass Back Exam: normal inspection Extremity Exam: normal inspection, normal range of motion, pelvis stable Neurologic Exam: alert, oriented x 3, cooperative, vehicle window tinter II-XII nml as tested, normal mood/affect, nml cerebellar function, nml station & gait, sensation nml, No motor deficits Skin Exam: normal color, warm, dry, No rash Lymphatic Exam: No adenopathy SpO2 Interpretation: normal (99%) SpO2: 99 - Course Nursing assessment & vital signs reviewed: Yes EKG Interpreted by Me: RATE (92 bpm), A-fib, NORMAL AXIS (EKG: Atrial fibrillation, 92 bpm, normal axis, no acute st or t wave changes, artifact noted ) - CT Exams Head CT Interpretation: Tele-radiologist Report (head CT: Impression: Mild chronic microvascular disease. No acute lesion or injury and no change from prior scan, ) Ordered Tests: Active Orders 24 hr Category Date Time Status Accucheck STAT Care 06/03/18 16:30 Active Clean Catch Urine Specimen STAT Care 06/03/18 17:01 Active EKG-ER Only STAT Care 06/03/18 16:30 Active IV Insertion STAT Care 06/03/18 16:30 Active Orthostatic Vital Signs STAT Care 06/03/18 16:30 Active CHEST 1 VIEW (PORTABLE) Stat Exams 06/03/18 17:44 Ordered HEAD WITHOUT CONTRAST [CT] Stat Exams 06/03/18 16:51 Taken CBC W DIFF Stat Lab 06/03/18 16:35 Completed CMP Stat Lab 06/03/18 16:35 Completed PROTIME WITH INR Stat Lab 06/03/18 16:35 Completed PTT Stat Lab 06/03/18 16:35 Completed TROPONIN Q3H Lab 06/03/18 16:35 Completed TROPONIN Q3H Lab 06/03/18 19:45 Ordered TROPONIN Q3H Lab 06/03/18 22:45 Ordered TROPONIN Q3H Lab 06/04/18 01:45 Ordered TROPONIN Q3H Lab 06/04/18 01:45 Ordered TROPONIN Q3H Lab 06/04/18 04:45 Ordered TROPONIN Q3H Lab 06/04/18 04:45 Ordered UA W/RFX UR CULTURE Stat Lab 06/03/18 17:00 Completed Medication Summary Generic Name Dose Route Start Last Admin Trade Name Freq PRN Reason Stop Dose Admin Sodium Chloride 1,000 mls @ 100 mls/hr 06/03/18 16:30 06/03/18 16:37 Sodium Chloride 0.9% 1000 Ml IV 07/03/18 16:29 100 mls/hr .Q10H LEANN Administration Lab/Rad Data: Laboratory Result Diagrams 06/03/18 16:35 06/03/18 16:35 Laboratory Results 06/03/18 06/03/18 06/03/18 Range/Units 17:00 16:35 16:35 WBC (4.0-10.5) K/mm3 RBC (4.1-5.4) M/mm3 Hgb (12.0-16.0) gm/dl Hct (35-47) % MCV (78-100) fl MCH (26-32) pg MCHC (32-36) g/dl RDW (11.5-14.0) % Plt Count (150-450) K/mm3 MPV (6-9.5) fl Gran % (36.0-66.0) % Eos # (Auto) (0-0.5) Absolute Lymphs (auto) (1.0-4.6) Absolute Monos (auto) (0.0-1.3) Lymphocytes % (24.0-44.0) % Monocytes % (0.0-12.0) % Eosinophils % (0.00-5.0) % Basophils % (0.0-0.4) % Absolute Granulocytes (1.4-6.9) Basophils # (0-0.4) PT 25.0 H (9.95-12.35) SECONDS INR 2.13 (0.8-3.0) APTT 36.0 (25.3-37.0) SECONDS Sodium (137-145) mmol/L Potassium (3.5-5.1) mmol/L Chloride (98-107) mmol/L Carbon Dioxide (22-30) mmol/L Anion Gap (5-15) MEQ/L BUN (7-17) mg/dL Creatinine (0.52-1.04) mg/dL Estimated GFR ML/MIN Glucose (74-106) mg/dL Calcium (8.4-10.2) mg/dL Total Bilirubin (0.2-1.3) mg/dL AST (14-36) U/L ALT (0-35) U/L Alkaline Phosphatase (38-126) U/L Troponin I < 0.012 (0.000-0.034) ng/mL Serum Total Protein (6.3-8.2) g/dL Albumin (3.5-5.0) g/dL Urine Color STRAW (YELLOW) Urine Appearance CLEAR (CLEAR) Urine pH 7.0 (5-6) Ur Specific [place] 1.006 (1.005-1.025) Urine Protein NEGATIVE (Negative) Urine Ketones NEGATIVE (NEGATIVE) Urine Blood SMALL (0-5) [place]/ul Urine Nitrite NEGATIVE (NEGATIVE) Urine Bilirubin NEGATIVE (NEGATIVE) Urine Urobilinogen NEGATIVE (0-1) mg/dL Ur Leukocyte Esterase NEGATIVE (NEGATIVE) Urine WBC (Auto) NONE (0-5) /HPF Urine RBC (Auto) 0-2 (0-2) /HPF U Epithel Cells (Auto) NONE (FEW) /HPF Urine Bacteria (Auto) NONE (NEGATIVE) /HPF Urine Culture Reflexed NO (NO) Urine Glucose NEGATIVE (NEGATIVE) mg/dL 06/03/18 06/03/18 Range/Units 16:35 16:35 WBC 6.4 (4.0-10.5) K/mm3 RBC 4.31 (4.1-5.4) M/mm3 Hgb 11.4 L (12.0-16.0) gm/dl Hct 35.2 (35-47) % MCV 81.7 (78-100) fl MCH 26.4 (26-32) pg MCHC 32.4 (32-36) g/dl RDW 16.4 H (11.5-14.0) % Plt Count 317 (150-450) K/mm3 MPV 8.7 (6-9.5) fl Gran % 62.2 (36.0-66.0) % Eos # (Auto) 0.17 (0-0.5) Absolute Lymphs (auto) 1.59 (1.0-4.6) Absolute Monos (auto) 0.65 (0.0-1.3) Lymphocytes % 24.8 (24.0-44.0) % Monocytes % 10.1 (0.0-12.0) % Eosinophils % 2.6 (0.00-5.0) % Basophils % 0.3 (0.0-0.4) % Absolute Granulocytes 3.99 (1.4-6.9) Basophils # 0.02 (0-0.4) PT (9.95-12.35) SECONDS INR (0.8-3.0) APTT (25.3-37.0) SECONDS Sodium 133 L (137-145) mmol/L Potassium 4.5 (3.5-5.1) mmol/L Chloride 99 (98-107) mmol/L Carbon Dioxide 28 (22-30) mmol/L Anion Gap 10.2 (5-15) MEQ/L BUN 22 H (7-17) mg/dL Creatinine 0.74 (0.52-1.04) mg/dL Estimated GFR > 60.0 ML/MIN Glucose 87 (74-106) mg/dL Calcium 9.1 (8.4-10.2) mg/dL Total Bilirubin 0.60 (0.2-1.3) mg/dL AST 31 (14-36) U/L ALT 17 (0-35) U/L Alkaline Phosphatase 103 (38-126) U/L Troponin I (0.000-0.034) ng/mL Serum Total Protein 7.2 (6.3-8.2) g/dL Albumin 3.7 (3.5-5.0) g/dL Urine Color (YELLOW) Urine Appearance (CLEAR) Urine pH (5-6) Ur Specific [place] (1.005-1.025) Urine Protein (Negative) Urine Ketones (NEGATIVE) Urine Blood (0-5) [place]/ul Urine Nitrite (NEGATIVE) Urine Bilirubin (NEGATIVE) Urine Urobilinogen (0-1) mg/dL Ur Leukocyte Esterase (NEGATIVE) Urine WBC (Auto) (0-5) /HPF Urine RBC (Auto) (0-2) /HPF U Epithel Cells (Auto) (FEW) /HPF Urine Bacteria (Auto) (NEGATIVE) /HPF Urine Culture Reflexed (NO) Urine Glucose (NEGATIVE) mg/dL - Progress Progress: improved Progress Note: 06/03/18 17:48 87-year-old white female with history of cataracts, arrhythmia, DVT, asthma, osteoporosis, atrial fibrillation Arrives with complaint of feeling dizzy since this afternoon. She is feeling better after receiving a small amount of IV fluids. Head CT on this patient no acute changes, mild chronic microvascular disease no acute lesion or injury and no change from prior scan. Patient's troponin is normal EKG atrial fibrillation 92 bpm normal axis no acute ST or T wave changes are noted Patient's chemistry essentially normal patient's INR is 2.13 CBC is slightly white blood cell 6.4 hemoglobin 11.4 hemoglobin hematocrit 35.2 urinalysis is normal. I've offered to do a chest x-ray on this patient she does not want on she states she is not having any shortness of breath or cough. I've offered to discussed the patient's case with her family physician for possible observation she does not want this either. Will send patient home. Patient is advised that she can return at any time for reevaluation and she is advised to follow-up with her family doctor. - Departure Time of Disposition: 17:51 Departure Disposition: Home Clinical Impression: Dizziness, Chronic atrial fibrillation Condition: Fair Critical Care Time: No Referrals: KAN CHOWDHURY [Primary Care Provider] - Additional Instructions: Return home rest. Plenty of fluids. Medications as prescribed by your family doctor. Follow-up with your family doctor. Return for acute distress severe symptoms or for any problems.
[2018-06-03 16:42] LABS: BASOPHIL % 0.3 % (0.0-0.4); Basophil (Absolute #) 0.02 (0-0.4); Eosinophil % 2.6 % (0.00-5.0); Eosinophil (Absolute #) 0.17 (0-0.5); Granulocyte Absolute (ANC) 3.99 (1.4-6.9); Granulocytes % 62.2 % (36.0-66.0); Hematocrit 35.2 % (35-47); Hemoglobin 11.4 gm/dl (12.0-16.0); Lymphocyte (Absolute #) 1.59 (1.0-4.6); Lymphocytes % 24.8 % (24.0-44.0); Mean Cell Volume 81.7 fl (78-100); Mean Corpuscular Hgb Concent. 32.4 g/dl (32-36); Mean Platelet Volume 8.7 fl (6-9.5); Monocyte (Absolute #) 0.65 (0.0-1.3); Monocytes % 10.1 % (0.0-12.0); Platelet Count 317 K/mm3 (150-450); Red Blood Count 4.31 M/mm3 (4.1-5.4); Red Cell Distribution Width 16.4 % (11.5-14.0); White Blood Count 6.4 K/mm3 (4.0-10.5)
[2018-06-03 16:43] LABS: Mean Corpuscular Hemoglobin 26.4 pg (26-32)
[2018-06-03 16:49] LABS: INR 2.13 (0.8-3.0)
[2018-06-03 16:54] LABS: ALBUMIN 3.7 g/dL (3.5-5.0); ALKALINE PHOSPHATASE 103 U/L (38-126); ANION GAP 10.2 MEQ/L (5-15); BLOOD UREA NITROGEN 22 mg/dL (7-17); CHLORIDE 99 mmol/L (98-107); Calcium 9.1 mg/dL (8.4-10.2); Carbon Dioxide 28 mmol/L (22-30); Creatinine 1 0.74 mg/dL (0.52-1.04); Glucose 87 mg/dL (74-106); Potassium 4.5 mmol/L (3.5-5.1); SGOT/AST 31 U/L (14-36); SGPT/ALT 17 U/L (0-35); SODIUM 133 mmol/L (137-145); Total Protein 7.2 g/dL (6.3-8.2)
[2018-06-03 17:21] LABS: Appearance CLEAR (CLEAR); Bilirubin NEGATIVE (NEGATIVE); Blood SMALL Ery/ul (0-5); Glucose NEGATIVE (NEGATIVE); Ketones NEGATIVE (NEGATIVE); Leukocyte Esterase NEGATIVE (NEGATIVE); Nitrite NEGATIVE (NEGATIVE); Protein,Urine Dip NEGATIVE (Negative); RBC 0-2 /HPF (0-2); Specific Gravity 1.006 (1.005-1.025); Urobilinogen NEGATIVE mg/dL (0-1)
[2018-06-03 17:27] VITALS: O2SAT 99
[2018-06-03 17:58] VITALS: BP 141/78; PULSE 89
--- NOTE | 2018-06-03 20:38 | XRAY ---
Indication: Dizziness and facial numbness. Multiple contiguous axial images obtained through the head without contrast. Comparison: October 19, 2017. Stable age-appropriate global atrophy and tiny left frontal calcified meningioma. Again no acute intracranial hemorrhage, abnormal extra-axial fluid collection, or mass effect. Fourth ventricle is midline without hydrocephalus. [place]-white matter differentiation preserved. Bony calvarium intact. Visualized paranasal sinuses and mastoid air cells are clear. Impression: Stable left frontal calcified meningioma. No new or acute intracranial abnormalities. Comment: Preliminary interpretation was made by [facility]. No critical discrepancy. CTDI 69.90
== END 2018-06-03 18:01 | disposition home or self-care (01) ==
LOC: ED 16:08
DX: R42 Dizziness and giddiness (principal); I48.2 Chronic atrial fibrillation; J45.909 Unspecified asthma, uncomplicated; Z86.718 Personal history of other venous thrombosis and embolism; M81.0 Age-related osteoporosis without current pathological fracture; Z79.01 Long term (current) use of anticoagulants
CPT/HCPCS: 36000; 36415; 70450; 80053; 81001; 82962; 84484; 85025; 85610; 85730; 93005; 96360; 96361; 99284

== ENCOUNTER 2018-09-14 09:34 | Emergency (ER) | payer MEDICARE ==
--- NOTE | 2018-09-14 10:11 | ERPHSYRPT ---
- History of Present Illness Time Seen by Provider: 09/14/18 10:05 Source: patient Exam Limitations: clinical condition Patient Subjective Stated Complaint: c/o lightheadedness and weakness for 2days with a history of chronic afib. also c/o left hip pain. ROM intact, no deformity to left extremity. Triage Nursing Assessment: c/o lightheadedness and weakness for 2days with a history of chronic afib. also c/o left hip pain. ROM intact, no deformity to left extremity. Physician History: PATIENT COMPLAINS OF LIGHTHEADEDNESS FOR 2 DAYS ASSOCIATED WITH CHRONIC LEFT HIP PAIN. DENIES TRAUMA OR INJURY. DENIES HEADACHE, BLURRED VISION, FOCAL NUMBNESS, TINGLING OR WEAKNESS IN EXTREMITIES. Method of Injury: unknown Occurred: days ago Quality: constant Severity of Pain-Max: mild Severity of Pain-Current: mild Lower Extremities Pain: leg: left Modifying Factors: Improves With: movement Associated Symptoms: none Allergies/Adverse Reactions: doxycycline Allergy (Severe, Verified 06/03/18 16:22) Blisters blisters in throat and difficulty swallowing Penicillins Allergy (Intermediate, Verified 06/03/18 16:22) Swelling of Face Sulfa (Sulfonamide Antibiotics) [Sulfa(Sulfonamide Antibiotics)] Allergy ( Intermediate, Verified 06/03/18 16:22) Swelling of Face amoxicillin [Amoxicillin] Allergy (Verified 06/03/18 16:22) ciprofloxacin [From Cipro] Adverse Reaction (Intermediate, Verified 06/03/18 16: 22) weak and sick weak and sick ciprofloxacin HCl [From Cipro] Adverse Reaction (Intermediate, Verified 16:22) weak and sick weak and sick codeine [Codeine] Adverse Reaction (Mild, Verified 06/03/18 16:22) Nausea Home Medications: Warfarin Sodium [Coumadin] 3.5 mg PO UD 06/25/13 [History] Metoprolol Succinate [Toprol Xl] 50 mg PO DAILY 05/06/16 [History] Albuterol Sulfate [Proair Hfa] 8.5 gm IH BID PRN PRN 07/27/16 [History] Hx Tetanus, Diphtheria Vaccination/Date Given: No Hx Influenza Vaccination/Date Given: Yes Hx Pneumococcal Vaccination/Date Given: Yes - Review of Systems Constitutional: No Fever, No Chills Eyes: No Symptoms Ears, Nose, & Throat: No Symptoms Respiratory: No Symptoms, No Cough, No Dyspnea Cardiac: No Symptoms, No Chest Pain, No Edema, No Syncope Abdominal/Gastrointestinal: No Symptoms, No Abdominal Pain, No Nausea, No Vomiting, No Diarrhea Genitourinary Symptoms: No Symptoms, No Dysuria Musculoskeletal: Joint Pain, No Back Pain, No Neck Pain Skin: No Rash Neurological: Dizziness, No Focal Weakness, No Sensory Changes Psychological: No Symptoms Endocrine: No Symptoms All Other Systems: Reviewed and Negative - Past Medical History Pertinent Past Medical History: Yes Neurological History: Dementia ENT History: Cataracts, Other Cardiac History: Arrhythmia, Deep Vein Thrombosis Respiratory History: Asthma Endocrine Medical History: No Pertinent History Musculoskeletal History: Osteoporosis GI Medical History: Polyps History: Other Psycho-Social History: No Pertinent History Female Reproductive Disorders: No Pertinent History Other Medical History: CHRONIC AFIB, nose bleeds, kidney infection - Past Surgical History Past Surgical History: Yes Neuro Surgical History: No Pertinent History Cardiac: No Pertinent History Respiratory: No Pertinent History Gastrointestinal: Other Genitourinary: Other Musculoskeletal: Orthopedic Surgery Female Surgical History: Hysterectomy Other Surgical History: colonoscopy, bladder tie up, hysterectomy is partial,. back surgery x 2, tonsilectomy - Social History Smoking Status: Never smoker Exposure to second hand smoke: Yes Drug Use: none Patient Lives Alone: Yes - Female History Hx Last Menstrual Period: post Hx Now: No - Nursing Vital Signs Nursing Vital Signs: Initial Vital Signs Pulse Rate 89 09/14/18 09:35 Respiratory Rate 18 09/14/18 09:35 Blood Pressure 144/87 09/14/18 09:35 O2 Sat by Pulse Oximetry 100 09/14/18 09:35 Pain Scale Pain Intensity 5 - Physical Exam General Appearance: alert Eyes, Ears, Nose, Throat Exam: moist mucous membranes Neck Exam: non-tender, supple Cardiovascular/Respiratory Exam: chest non-tender, normal breath sounds, regular rate/rhythm, no respiratory distress Gastrointestinal/Abdominal Exam: non-tender, guarding Back Exam: normal inspection, No vertebral tenderness Hips Exam: left: normal range of motion (WITHOUT PAIN. NO CREPITUS OR TENDERNESS OVER GREATER TROCHANTER), other (LEFT PEDIS PULSE 2+) DTR - Lower Extremities Exam: knee (R): 2+, knee (L): 2+, ankle (R): 2+, ankle ( L): 2+ Neuro/Tendon Exam: normal sensation, normal motor functions Mental Status Exam: alert, oriented x 3, cooperative Skin Exam: normal color, warm, dry SpO2 Interpretation: normal SpO2: 100 - Radiology Exams Left Hip X-ray Interpretation: Negative, No Fracture Pelvis X-ray Interpretation: Interpreted by me, Negative, No Fracture Ordered Tests: Active Orders 24 hr Category Date Time Status EKG-ER Only STAT Care 09/14/18 10:11 Active IV Insertion STAT Care 09/14/18 10:11 Active 1800 Calorie ADA Diet 09/14/18 Dinner Active HIP UNI (2V) INCL PEL IF DONE Stat Exams 09/14/18 10:37 Taken BMP Stat Lab 09/14/18 10:22 Completed CBC W DIFF Stat Lab 09/14/18 10:22 Completed MAGNESIUM Stat Lab 09/14/18 10:22 Completed PT INR [PROTIME WITH INR] Stat Lab 09/14/18 11:50 Ordered Urine Triage Profile Stat Lab 09/14/18 10:11 Uncollected Medication Summary Generic Name Dose Route Start Last Admin Trade Name Freq PRN Reason Stop Dose Admin Sodium Chloride 1,000 mls @ 100 mls/hr 09/14/18 10:15 09/14/18 10:54 Sodium Chloride 0.9% 1000 Ml IV 10/14/18 10:14 100 mls/hr .Q10H LEANN Administration Discontinued Medications Generic Name Dose Route Start Last Admin Trade Name Freq PRN Reason Stop Dose Admin Acetaminophen 650 mg 09/14/18 10:13 09/14/18 10:56 Tylenol 325 Mg PO 09/14/18 10:14 650 mg STAT STA Administration Acetaminophen Confirm 09/14/18 10:34 Tylenol 325 Mg Administered 09/14/18 10:35 Dose 650 mg .ROUTE .[facility] [facility] Lab/Rad Data: Laboratory Result Diagrams 09/14/18 10:22 09/14/18 10:22 Laboratory Results 09/14/18 09/14/18 09/14/18 Range/Units 10:22 10:22 10:22 WBC 6.9 (4.0-10.5) K/mm3 RBC 4.45 (4.1-5.4) M/mm3 Hgb 11.6 L (12.0-16.0) gm/dl Hct 35.7 (35-47) % MCV 80.2 (78-100) fl MCH 26.0 (26-32) pg MCHC 32.5 (32-36) g/dl RDW 15.9 H (11.5-14.0) % Plt Count 328 (150-450) K/mm3 MPV 8.1 (6-9.5) fl Gran % 70.1 H (36.0-66.0) % Eos # (Auto) 0.07 (0-0.5) Absolute Lymphs (auto) 1.15 (1.0-4.6) Absolute Monos (auto) 0.82 (0.0-1.3) Lymphocytes % 16.8 L (24.0-44.0) % Monocytes % 12.0 (0.0-12.0) % Eosinophils % 1.0 (0.00-5.0) % Basophils % 0.1 (0.0-0.4) % Absolute Granulocytes 4.80 (1.4-6.9) Basophils # 0.01 (0-0.4) Sodium 132 L (137-145) mmol/L Potassium 3.9 (3.5-5.1) mmol/L Chloride 98 (98-107) mmol/L Carbon Dioxide 26 (22-30) mmol/L Anion Gap 12.1 (5-15) MEQ/L BUN 15 (7-17) mg/dL Creatinine 0.71 (0.52-1.04) mg/dL Estimated GFR > 60.0 ML/MIN Glucose 69 L (74-106) mg/dL Calcium 9.2 (8.4-10.2) mg/dL Magnesium 2.0 (1.6-2.3) mg/dL - Progress Progress: improved Progress Note: 09/14/18 12:11 ALL LABS REVIEWED AND ARE NORMAL EXCEPT FOR GLUCOSE-69. PATIENT GIVE FOOD TRAY Counseled pt/family regarding: lab results, diagnosis, rad results - Departure Departure Disposition: Home Clinical Impression: HYPOGLYCEMIA, LEFT HIP PAIN Condition: Stable Critical Care Time: No Referrals: KAN CHOWDHURY [Primary Care Provider] - Additional Instructions: TYLENOL EVERY 4 HOURS FOR PAIN NEEDED. CONSUME FREQUENT MEALS. CONSULT YOUR PRIMARY CARE PROVIDER FOR EVALUATION.
[2018-09-14] MEDS ORDERED: TYLENOL 325 MG PO STA (10:13)
[2018-09-14] MEDS ORDERED: Sodium Chloride 0.9% 1000 ML 1,000 ML IV SCH (10:15)
[2018-09-14 10:26] LABS: BASOPHIL % 0.1 % (0.0-0.4); Basophil (Absolute #) 0.01 (0-0.4); Eosinophil (Absolute #) 0.07 (0-0.5); Granulocytes % 70.1 % (36.0-66.0); Hematocrit 35.7 % (35-47); Hemoglobin 11.6 gm/dl (12.0-16.0); Lymphocyte (Absolute #) 1.15 (1.0-4.6); Lymphocytes % 16.8 % (24.0-44.0); Mean Cell Volume 80.2 fl (78-100); Mean Corpuscular Hgb Concent. 32.5 g/dl (32-36); Mean Platelet Volume 8.1 fl (6-9.5); Monocyte (Absolute #) 0.82 (0.0-1.3); Platelet Count 328 K/mm3 (150-450); Red Blood Count 4.45 M/mm3 (4.1-5.4); Red Cell Distribution Width 15.9 % (11.5-14.0); White Blood Count 6.9 K/mm3 (4.0-10.5)
[2018-09-14] MEDS ORDERED: TYLENOL 325 MG ONE (10:34)
[2018-09-14] MEDS ORDERED: Sodium Chloride 0.9% 1000 ML 1,000 ML ONE (10:34)
[2018-09-14 10:36] LABS: ANION GAP 12.1 MEQ/L (5-15); BLOOD UREA NITROGEN 15 mg/dL (7-17); CHLORIDE 98 mmol/L (98-107); Calcium 9.2 mg/dL (8.4-10.2); Carbon Dioxide 26 mmol/L (22-30); Creatinine 1 0.71 mg/dL (0.52-1.04); Glucose 69 mg/dL (74-106); Potassium 3.9 mmol/L (3.5-5.1); SODIUM 132 mmol/L (137-145)
[2018-09-14 12:05] VITALS: BP 118/86
[2018-09-14 12:07] LABS: INR 2.42 (0.8-3.0); PROTIME 27.8 SECONDS (9.95-12.35)
[2018-09-14 13:34] VITALS: PULSE 78; O2SAT 98
--- NOTE | 2018-09-14 20:20 | XRAY ---
Indication: Left hip/sciatic pain. Comparison: None AP pelvis and 2 views of the left hip demonstrates osteopenia, moderate multilevel lumbar degenerative spondylosis, and tiny heterotopic ossification adjacent to the left greater trochanter. No other bony, articular, or soft tissue abnormalities.
== END 2018-09-14 13:36 | disposition home or self-care (01) ==
LOC: ED 09:34
DX: E16.2 Hypoglycemia, unspecified (principal); M25.552 Pain in left hip; R42 Dizziness and giddiness; Z79.01 Long term (current) use of anticoagulants; Z79.899 Other long term (current) drug therapy
CPT/HCPCS: 36000; 36415; 73502; 80048; 83735; 85025; 85610; 93005; 96360; 96361; 96374; 99284; A9270-GY

== ENCOUNTER 2019-07-25 17:08 | Emergency (ER) | payer MEDICARE ==
[2019-07-25 17:29] VITALS: BP 161/79; PULSE 90; O2SAT 99
--- NOTE | 2019-07-25 17:47 | ERPHSYRPT ---
- History of Present Illness Time Seen by Provider: 07/25/19 17:45 Source: patient, family Exam Limitations: no limitations Patient Subjective Stated Complaint: pt reports she was walking across the room today when she felt like she may fall down. reports she has "spells" where she feels lightheaded. pt family reports in the last 2-3 days pt has increased complaints of dizziness. daughter present reports pt with some dementia and forgetfulness which is norm for pt. Triage Nursing Assessment: pt is aox2, unaware of day and year, pupils perrl, pt speech is clear, appropriate, pt is pleasant, relaxed, pt ambulates to room with slow, steady gait, afebrile, resps easy and non labored, radial pulses strong and equal, cap refill < 3 seconds, pt abd soft non tender, pt skin pink warm dry. no edema noted. skin is intact. Physician History: pt reports she was walking across the room today when she felt like she may fall down. reports she has "spells" where she feels lightheaded. pt family reports in the last 2-3 days pt has increased complaints of dizziness. daughter present reports pt with some dementia and forgetfulness Timing/Duration: today Activities at Onset: none Modifying Factors: Improves With: nothing Nitro Today/Relief: no nitro taken today Aspirin Treatment Today: no aspirin today Associated Symptoms: denies symptoms Allergies/Adverse Reactions: doxycycline Allergy (Severe, Verified 07/25/19 17:30) Blisters blisters in throat and difficulty swallowing Penicillins Allergy (Intermediate, Verified 07/25/19 17:30) Swelling of Face Sulfa (Sulfonamide Antibiotics) [Sulfa(Sulfonamide Antibiotics)] Allergy ( Intermediate, Verified 07/25/19 17:30) Swelling of Face amoxicillin [Amoxicillin] Allergy (Verified 07/25/19 17:30) ciprofloxacin [From Cipro] Adverse Reaction (Intermediate, Verified 07/25/19 17: 30) weak and sick weak and sick ciprofloxacin HCl [From Cipro] Adverse Reaction (Intermediate, Verified 17:30) weak and sick weak and sick codeine [Codeine] Adverse Reaction (Mild, Verified 07/25/19 17:30) Nausea Home Medications: Metoprolol Succinate [Toprol Xl] 25 mg PO BID 05/06/16 [History] Albuterol Sulfate [Proair Hfa] 8.5 gm IH BID PRN PRN 07/27/16 [History] Oxybutynin Chloride 5 mg [Ditropan 5 MG] 5 mg PO BID 07/25/19 [History] Warfarin Sodium 3 mg PO DAILY 07/25/19 [History] Hx Tetanus, Diphtheria Vaccination/Date Given: Yes Hx Influenza Vaccination/Date Given: Yes Hx Pneumococcal Vaccination/Date Given: Yes Immunizations Up to Date: Yes Travel Risk - International Travel Have you traveled outside of the country in past 3 weeks: No Have you or anyone close to you been diagnosed with or: No Do your reside in a community with a known COVID-19 case?: Yes If Yes where:: [place] - Coronavirus Screening Has patient experienced Coronavirus symptoms: No - Review of Systems Constitutional: No Fever, No Chills Eyes: No Symptoms Ears, Nose, & Throat: No Symptoms Respiratory: No Cough, No Dyspnea Cardiac: No Chest Pain, No Edema, No Syncope Abdominal/Gastrointestinal: No Abdominal Pain, No Nausea, No Vomiting, No Diarrhea Genitourinary Symptoms: No Dysuria Musculoskeletal: No Back Pain, No Neck Pain Skin: No Rash Neurological: No Dizziness, No Focal Weakness, No Sensory Changes Psychological: No Symptoms Endocrine: No Symptoms All Other Systems: Reviewed and Negative - Past Medical History Pertinent Past Medical History: Yes Neurological History: Dementia ENT History: Cataracts, Other Cardiac History: Arrhythmia, Deep Vein Thrombosis Respiratory History: Asthma Endocrine Medical History: No Pertinent History Musculoskeletal History: Osteoporosis GI Medical History: Polyps History: Other Psycho-Social History: No Pertinent History Female Reproductive Disorders: No Pertinent History Other Medical History: CHRONIC AFIB, nose bleeds, kidney infection - Past Surgical History Past Surgical History: Yes Neuro Surgical History: No Pertinent History Cardiac: No Pertinent History Respiratory: No Pertinent History Gastrointestinal: Other Genitourinary: Other Musculoskeletal: Orthopedic Surgery Female Surgical History: Hysterectomy Other Surgical History: colonoscopy, bladder tie up, hysterectomy is partial,. back surgery x 2, tonsilectomy - Social History Smoking Status: Never smoker Exposure to second hand smoke: No Drug Use: none Patient Lives Alone: Yes (stays with daughter at night) - Nursing Vital Signs Nursing Vital Signs: Initial Vital Signs Temperature 97.6 F 07/25/19 17:14 Pulse Rate 90 07/25/19 17:14 Respiratory Rate 20 07/25/19 17:14 Blood Pressure 161/79 07/25/19 17:14 O2 Sat by Pulse Oximetry 99 07/25/19 17:14 Pain Scale Pain Intensity 0 - Physical Exam General Appearance: no apparent distress, alert Eye Exam: PERRL/EOMI, eyes nml inspection Ears, Nose, Throat Exam: normal ENT inspection, moist mucous membranes Neck Exam: normal inspection, non-tender, supple Respiratory Exam: normal breath sounds, lungs clear, No respiratory distress Cardiovascular Exam: regular rate/rhythm, normal heart sounds, No edema Gastrointestinal/Abdomen Exam: soft, No tenderness, No mass Back Exam: normal inspection, No CVA tenderness, No vertebral tenderness Extremity Exam: normal inspection, normal range of motion Neurologic Exam: alert, oriented x 3, cooperative, normal mood/affect, nml cerebellar function, sensation nml, No motor deficits Skin Exam: normal color, warm, dry Lymphatic Exam: No adenopathy SpO2: 99 - Course Nursing assessment & vital signs reviewed: Yes - Radiology Exams Chest X-ray Interpretation: Reviewed by me Ordered Tests: Active Orders 24 hr Category Date Time Status EKG-ER Only STAT Care 07/25/19 17:15 Active IV Insertion STAT Care 07/25/19 17:15 Active cath [Cath for Specimen-Straight] STAT Care 07/25/19 17:31 Active CHEST 2 VIEWS (PA AND LAT) Stat Exams 07/25/19 17:16 Taken CBC W DIFF Stat Lab 07/25/19 17:30 Completed CMP Stat Lab 07/25/19 17:30 Completed MAGNESIUM Stat Lab 07/25/19 17:30 Completed NT PRO BNP Stat Lab 07/25/19 17:30 Completed PROTIME WITH INR Stat Lab 07/25/19 17:30 Completed TROPONIN Q3H Lab 07/25/19 17:30 Completed TROPONIN Q3H Lab 07/25/19 20:30 Ordered TROPONIN Q3H Lab 07/25/19 23:30 Ordered TROPONIN Q3H Lab 07/26/19 02:30 Ordered TROPONIN Q3H Lab 07/26/19 05:30 Ordered UA W/RFX UR CULTURE Stat Lab 07/25/19 17:35 Completed Lab/Rad Data: Laboratory Result Diagrams 07/25/19 17:30 07/25/19 17:30 Laboratory Results 07/25/19 07/25/19 07/25/19 Range/Units 17:35 17:30 17:30 WBC (4.0-10.5) K/mm3 RBC (4.1-5.4) M/mm3 Hgb (12.0-16.0) gm/dl Hct (35-47) % MCV (78-100) fl MCH (26-32) pg MCHC (32-36) g/dl RDW (11.5-14.0) % Plt Count (150-450) K/mm3 MPV (7.5-11.0) fl Gran % (36.0-66.0) % Eos # (Auto) (0-0.5) Absolute Lymphs (auto) (1.0-4.6) Absolute Monos (auto) (0.0-1.3) Lymphocytes % (24.0-44.0) % Monocytes % (0.0-12.0) % Eosinophils % (0.00-5.0) % Basophils % (0.0-0.4) % Absolute Granulocytes (1.4-6.9) Basophils # (0-0.4) PT 27.6 H (9.95-12.35) SECONDS INR 2.40 (0.8-3.0) Sodium (137-145) mmol/L Potassium (3.5-5.1) mmol/L Chloride (98-107) mmol/L Carbon Dioxide (22-30) mmol/L Anion Gap (5-15) MEQ/L BUN (7-17) mg/dL Creatinine (0.52-1.04) mg/dL Estimated GFR ML/MIN Glucose (74-106) mg/dL Calcium (8.4-10.2) mg/dL Magnesium (1.6-2.3) mg/dL Total Bilirubin (0.2-1.3) mg/dL AST (14-36) U/L ALT (0-35) U/L Alkaline Phosphatase (38-126) U/L Troponin I < 0.012 (0.000-0.034) ng/mL NT-Pro-B Natriuret Pep (0-1800) pg/mL Serum Total Protein (6.3-8.2) g/dL Albumin (3.5-5.0) g/dL Urine Color YELLOW (YELLOW) Urine Appearance CLEAR (CLEAR) Urine pH 7.0 (5-6) Ur Specific [place] 1.010 (1.005-1.025) Urine Protein NEGATIVE (Negative) Urine Ketones NEGATIVE (NEGATIVE) Urine Blood MODERATE (0-5) [place]/ul Urine Nitrite NEGATIVE (NEGATIVE) Urine Bilirubin NEGATIVE (NEGATIVE) Urine Urobilinogen NEGATIVE (0-1) mg/dL Ur Leukocyte Esterase NEGATIVE (NEGATIVE) Urine WBC (Auto) NONE (0-5) /HPF Urine RBC (Auto) 0-2 (0-2) /HPF U Epithel Cells (Auto) NONE (FEW) /HPF Urine Bacteria (Auto) NONE (NEGATIVE) /HPF Other Casts (Auto) 2-5 (NEGATIVE) /LPF Urine Culture Reflexed NO (NO) Urine Glucose NEGATIVE (NEGATIVE) mg/dL 07/25/19 07/25/19 Range/Units 17:30 17:30 WBC 7.5 (4.0-10.5) K/mm3 RBC 4.60 (4.1-5.4) M/mm3 Hgb 11.6 L (12.0-16.0) gm/dl Hct 36.4 (35-47) % MCV 79.1 (78-100) fl MCH 25.2 L (26-32) pg MCHC 31.9 L (32-36) g/dl RDW 17.4 H (11.5-14.0) % Plt Count 383 (150-450) K/mm3 MPV 8.7 (7.5-11.0) fl Gran % 67.8 H (36.0-66.0) % Eos # (Auto) 0.17 (0-0.5) Absolute Lymphs (auto) 1.57 (1.0-4.6) Absolute Monos (auto) 0.66 (0.0-1.3) Lymphocytes % 20.8 L (24.0-44.0) % Monocytes % 8.8 (0.0-12.0) % Eosinophils % 2.3 (0.00-5.0) % Basophils % 0.3 (0.0-0.4) % Absolute Granulocytes 5.11 (1.4-6.9) Basophils # 0.02 (0-0.4) PT (9.95-12.35) SECONDS INR (0.8-3.0) Sodium 132 L (137-145) mmol/L Potassium 4.1 (3.5-5.1) mmol/L Chloride 98 (98-107) mmol/L Carbon Dioxide 24 (22-30) mmol/L Anion Gap 14.5 (5-15) MEQ/L BUN 17 (7-17) mg/dL Creatinine 0.86 (0.52-1.04) mg/dL Estimated GFR > 60.0 ML/MIN Glucose 80 (74-106) mg/dL Calcium 9.2 (8.4-10.2) mg/dL Magnesium 2.3 (1.6-2.3) mg/dL Total Bilirubin 0.60 (0.2-1.3) mg/dL AST 29 (14-36) U/L ALT 15 (0-35) U/L Alkaline Phosphatase 117 (38-126) U/L Troponin I (0.000-0.034) ng/mL NT-Pro-B Natriuret Pep 1740 (0-1800) pg/mL Serum Total Protein 7.8 (6.3-8.2) g/dL Albumin 4.0 (3.5-5.0) g/dL Urine Color (YELLOW) Urine Appearance (CLEAR) Urine pH (5-6) Ur Specific [place] (1.005-1.025) Urine Protein (Negative) Urine Ketones (NEGATIVE) Urine Blood (0-5) [place]/ul Urine Nitrite (NEGATIVE) Urine Bilirubin (NEGATIVE) Urine Urobilinogen (0-1) mg/dL Ur Leukocyte Esterase (NEGATIVE) Urine WBC (Auto) (0-5) /HPF Urine RBC (Auto) (0-2) /HPF U Epithel Cells (Auto) (FEW) /HPF Urine Bacteria (Auto) (NEGATIVE) /HPF Other Casts (Auto) (NEGATIVE) /LPF Urine Culture Reflexed (NO) Urine Glucose (NEGATIVE) mg/dL - Progress Progress: improved Air Movement: good Blood Culture(s) Obtained: No Antibiotics given: No Counseled pt/family regarding: lab results, diagnosis, need for follow-up, rad results - Departure Departure Disposition: Home Clinical Impression: Dizziness Atrial fibrillation Qualifiers: Atrial fibrillation type: unspecified chronic Qualified Code(s): I48.20 - Chronic atrial fibrillation, unspecified; I48.2 - Chronic atrial fibrillation Condition: Stable Critical Care Time: Yes Critical Care Time(excluding separately billable procedures): Critical 30-74 mins Referrals: KAN CHOWDHURY [Primary Care Provider] - Instructions: Dizziness, Nonvertigo, (DC)
[2019-07-25 18:02] LABS: INR 2.4 (0.8-3.0); PROTIME 27.6 SECONDS (9.95-12.35)
[2019-07-25 18:04] LABS: Absolute Neutrophil Ct (ANC) 5.11 (1.4-6.9); BASOPHIL % 0.3 % (0.0-0.4); Basophil (Absolute #) 0.02 (0-0.4); Eosinophil % 2.3 % (0.00-5.0); Eosinophil (Absolute #) 0.17 (0-0.5); Hematocrit 36.4 % (35-47); Hemoglobin 11.6 gm/dl (12.0-16.0); Lymphocyte (Absolute #) 1.57 (1.0-4.6); Lymphocytes % 20.8 % (24.0-44.0); Mean Cell Volume 79.1 fl (78-100); Mean Corpuscular Hemoglobin 25.2 pg (26-32); Mean Corpuscular Hgb Concent. 31.9 g/dl (32-36); Mean Platelet Volume 8.7 fl (7.5-11.0); Monocyte (Absolute #) 0.66 (0.0-1.3); Monocytes % 8.8 % (0.0-12.0); Neutrophil % 67.8 % (36.0-66.0); Platelet Count 383 K/mm3 (150-450); Red Cell Distribution Width 17.4 % (11.5-14.0); White Blood Count 7.5 K/mm3 (4.0-10.5)
[2019-07-25 18:12] LABS: Appearance CLEAR (CLEAR); Bilirubin NEGATIVE (NEGATIVE); Blood MODERATE Ery/ul (0-5); Glucose NEGATIVE (NEGATIVE); Ketones NEGATIVE (NEGATIVE); Leukocyte Esterase NEGATIVE (NEGATIVE); Nitrite NEGATIVE (NEGATIVE); Protein,Urine Dip NEGATIVE (Negative); RBC 0-2 /HPF (0-2); Urobilinogen NEGATIVE mg/dL (0-1)
[2019-07-25 18:16] LABS: ALKALINE PHOSPHATASE 117 U/L (38-126); ANION GAP 14.5 MEQ/L (5-15); BLOOD UREA NITROGEN 17 mg/dL (7-17); CHLORIDE 98 mmol/L (98-107); Calcium 9.2 mg/dL (8.4-10.2); Carbon Dioxide 24 mmol/L (22-30); Creatinine 1 0.86 mg/dL (0.52-1.04); Glucose 80 mg/dL (74-106); MAGNESIUM 2.3 mg/dL (1.6-2.3); NT PRO BNP 1740 pg/mL (0-1800); Potassium 4.1 mmol/L (3.5-5.1); SGOT/AST 29 U/L (14-36); SGPT/ALT 15 U/L (0-35); SODIUM 132 mmol/L (137-145); Total Protein 7.8 g/dL (6.3-8.2)
--- NOTE | 2019-07-25 20:34 | XRAY ---
Indication: Dizziness. Comparison: March 03, 2018. PA/lateral chest remains hyperinflated with stable left infrahilar fibrosis/scarring and bilateral hilar calcified nodes. No focal infiltrate, consolidation, or large effusion. Heart is not enlarged. Bony thorax intact again with mild osteopenia and degenerative changes. Impression: Continued nonacute hyperinflated chest with chronic features.
== END 2019-07-25 18:56 | disposition home or self-care (01) ==
LOC: ED 17:08
DX: I48.20 Chronic atrial fibrillation, unspecified (principal); R42 Dizziness and giddiness; Z86.718 Personal history of other venous thrombosis and embolism; M81.0 Age-related osteoporosis without current pathological fracture; F03.90 Unspecified dementia, unspecified severity, without behavioral disturbance, psychotic disturbance, mood disturbance, and anxiety; Z86.79 Personal history of other diseases of the circulatory system
CPT/HCPCS: 80053; 81001; 83735; 83880; 84484; 85025; 85610; 93005; 99291; P9612; 36000; 36415; 71046; 99284

== ENCOUNTER 2020-06-11 20:48 | Emergency (ER) | payer MEDICARE ==
[2020-06-11 22:00] LABS: Absolute Neutrophil Ct (ANC) 9.13 (1.4-6.9); BASOPHIL % 0.1 % (0.0-0.4); Basophil (Absolute #) 0.01 (0-0.4); Eosinophil % 0.5 % (0.00-5.0); Eosinophil (Absolute #) 0.06 (0-0.5); Hematocrit 34.5 % (35-47); Hemoglobin 10.8 gm/dl (12.0-16.0); Lymphocyte (Absolute #) 0.93 (1.0-4.6); Lymphocytes % 8.5 % (24.0-44.0); Mean Cell Volume 77.5 fl (78-100); Mean Corpuscular Hemoglobin 24.3 pg (26-32); Mean Corpuscular Hgb Concent. 31.3 g/dl (32-36); Mean Platelet Volume 8.1 fl (7.5-11.0); Monocytes % 7.3 % (0.0-12.0); Neutrophil % 83.6 % (36.0-66.0); Platelet Count 323 K/mm3 (150-450); Red Blood Count 4.45 M/mm3 (4.1-5.4); Red Cell Distribution Width 17.7 % (11.5-14.0); White Blood Count 10.9 K/mm3 (4.0-10.5)
[2020-06-11 22:04] LABS: INR 2.75 (0.8-3.0); PROTIME 31.4 SECONDS (9.95-12.35)
[2020-06-11 22:15] LABS: ALBUMIN 3.7 g/dL (3.5-5.0); ALKALINE PHOSPHATASE 157 U/L (38-126); ANION GAP 13.4 MEQ/L (5-15); BLOOD UREA NITROGEN 16 mg/dL (7-17); CHLORIDE 94 mmol/L (98-107); Calcium 9.1 mg/dL (8.4-10.2); Carbon Dioxide 24 mmol/L (22-30); EST GLOMERULAR FILTRATION RATE > 60.0 ML/MIN; Glucose 111 mg/dL (74-106); NT PRO BNP 3870 pg/mL (0-1800); Potassium 4.2 mmol/L (3.5-5.1); SGOT/AST 74 U/L (14-36); SGPT/ALT 37 U/L (0-35); SODIUM 127 mmol/L (137-145); Total Protein 7.3 g/dL (6.3-8.2)
--- NOTE | 2020-06-11 22:26 | ERPHSYRPT ---
- History of Present Illness Time Seen by Provider: 06/11/20 21:06 Source: patient, family, EMS Exam Limitations: no limitations Patient Subjective Stated Complaint: "My daughter though I was wheezing." Triage Nursing Assessment: The patient's daughter reported a mechanical standing fall earlier in the day. The patient was evaluated at [facility] without acute findings. The daughter reported that an xray was performed on the right lower extremity but not the right hip. Ongoing right hip pain with ambulation was reported after the patient was discharged. The daughter reported that the patient woke up with difficulty breathing and audible wheezes. Patient presented pleasently confused without obvious distress of breathing. Oral mucosa pink/moist. Neck supple non-tender without lymphadenopathy. Symmetrical chest expansion. Heart tones S1/S2 irregular/irregular without extra sounds. Lungs vesicular with slightly diminished flow in the bilateral bases. Abdomen flat non-tender with bowel sounds present. Peripheral pulses +2 bialteral. +1 dependent edema to bilateral lower extremities. No pain with palpation to the right hip. Timing/Duration: today Activities at Onset: activity Severity of Dyspnea-Max: mild Severity of Dyspnea-Current: none Possible Cause: no prior episodes Allergies/Adverse Reactions: doxycycline Allergy (Severe, Verified 06/11/20 21:27) Blisters blisters in throat and difficulty swallowing Penicillins Allergy (Intermediate, Verified 06/11/20 21:27) Swelling of Face Sulfa (Sulfonamide Antibiotics) [Sulfa(Sulfonamide Antibiotics)] Allergy (Intermediate, Verified 06/11/20 21:27) Swelling of Face amoxicillin [Amoxicillin] Allergy (Verified 06/11/20 21:27) ciprofloxacin [From Cipro] Adverse Reaction (Intermediate, Verified 06/11/20 21:27) weak and sick weak and sick ciprofloxacin HCl [From Cipro] Adverse Reaction (Intermediate, Verified 06/11/20 21:27) weak and sick weak and sick codeine [Codeine] Adverse Reaction (Mild, Verified 06/11/20 21:27) Nausea Home Medications: Metoprolol Succinate [Toprol Xl] 25 mg PO BID 05/06/16 [History] Albuterol Sulfate [Proair Hfa] 8.5 gm IH BID PRN PRN 07/27/16 [History] Oxybutynin Chloride 5 mg [Ditropan 5 MG] 5 mg PO BID 07/25/19 [History] Warfarin Sodium 3 mg PO DAILY 07/25/19 [History] Hx Tetanus, Diphtheria Vaccination/Date Given: Yes Hx Influenza Vaccination/Date Given: Yes Hx Pneumococcal Vaccination/Date Given: Yes Travel Risk - International Travel Have you traveled outside of the country in past 3 weeks: No - Coronavirus Screening Are you exhibiting any of the following symptoms?: No Close contact with a COVID-19 positive Pt in past 14-21 Days: No - Review of Systems Constitutional: No Symptoms Eyes: No Symptoms Ears, Nose, & Throat: No Symptoms Respiratory: Dyspnea on Exertion ([place]) Cardiac: No Symptoms Abdominal/Gastrointestinal: No Symptoms Genitourinary Symptoms: No Symptoms Musculoskeletal: Fall, Joint Pain (right hip from fall today) Skin: No Symptoms Neurological: No Symptoms Psychological: No Symptoms Endocrine: No Symptoms Hematologic/Lymphatic: No Symptoms Immunological/Allergic: No Symptoms All Other Systems: Reviewed and Negative - Past Medical History Pertinent Past Medical History: Yes Neurological History: Dementia ENT History: Cataracts, Other Cardiac History: Arrhythmia, Deep Vein Thrombosis Respiratory History: Asthma Endocrine Medical History: No Pertinent History Musculoskeletal History: Osteoporosis GI Medical History: Polyps History: Other Psycho-Social History: No Pertinent History Female Reproductive Disorders: No Pertinent History Other Medical History: CHRONIC AFIB, nose bleeds, kidney infection - Past Surgical History Past Surgical History: Yes Neuro Surgical History: No Pertinent History Cardiac: No Pertinent History Respiratory: No Pertinent History Gastrointestinal: Other Genitourinary: Other Musculoskeletal: Orthopedic Surgery Female Surgical History: Hysterectomy Other Surgical History: colonoscopy, bladder tie up, hysterectomy is partial,. back surgery x 2, tonsilectomy - Social History Smoking Status: Never smoker Exposure to second hand smoke: No Drug Use: none Patient Lives Alone: Yes (stays with daughter at night) - Female History Hx Now: No - Nursing Vital Signs Nursing Vital Signs: Initial Vital Signs Temperature 99.1 F 06/11/20 20:48 Pulse Rate 102 H 06/11/20 20:48 Respiratory Rate 16 06/11/20 20:48 Blood Pressure 160/112 06/11/20 20:48 O2 Sat by Pulse Oximetry 93 L 06/11/20 20:48 Pain Scale Pain Intensity 0 - Physical Exam General Appearance: no apparent distress Eye Exam: PERRL/EOMI, eyes nml inspection Ears, Nose, Throat Exam: hearing grossly normal, normal ENT inspection Neck Exam: normal inspection, non-tender Respiratory Exam: normal breath sounds, lungs clear Cardiovascular/Chest Exam: normal heart sounds, irregular Abdominal/Gastrointestinal Exam: soft, normal bowel sounds Rectal Exam: deferred Extremity Exam: normal capillary refill, no calf tenderness, no pedal edema, joint swelling (right hip mildly swollen and tender from the fall) Neurologic Exam: alert, oriented x 3, cooperative, normal mood/affect Skin Exam: normal color SpO2 Interpretation: normal SpO2: 93 - Course Nursing assessment & vital signs reviewed: Yes EKG Interpreted by Me: RATE (96), A-fib, NORMAL AXIS, NORMAL INTERVALS, Non- specific ST Changes - Radiology Exams Chest X-ray Interpretation: Interpreted by me, Other (Chronic changes) - CT Exams Pelvis CT Interpretation: Negative, Other (right hip contusion) Ordered Tests: Active Orders 24 hr Category Date Time Status EKG-ER Only STAT Care 06/11/20 21:25 Active CHEST 1 VIEW (PORTABLE) Stat Exams 06/11/20 21:26 Taken PELVIS WITHOUT CONTRAST [CT] Stat Exams 06/11/20 21:54 Taken CBC W DIFF Stat Lab 06/11/20 21:00 Completed CMP Stat Lab 06/11/20 21:00 Completed NT PRO BNP Stat Lab 06/11/20 21:00 Completed PROTIME WITH INR Stat Lab 06/11/20 21:00 Completed TROPONIN Q3H Lab 06/11/20 21:00 Completed TROPONIN Q3H Lab 06/12/20 00:30 Ordered TROPONIN Q3H Lab 06/12/20 03:30 Ordered TROPONIN Q3H Lab 06/12/20 06:30 Ordered TROPONIN Q3H Lab 06/12/20 09:30 Ordered Lab/Rad Data: Laboratory Result Diagrams 06/11/20 21:00 06/11/20 21:00 Laboratory Results 06/11/20 06/11/20 06/11/20 Range/Units 21:00 21:00 21:00 WBC (4.0-10.5) K/mm3 RBC (4.1-5.4) M/mm3 Hgb (12.0-16.0) gm/dl Hct (35-47) % MCV (78-100) fl MCH (26-32) pg MCHC (32-36) g/dl RDW (11.5-14.0) % Plt Count (150-450) K/mm3 MPV (7.5-11.0) fl Gran % (36.0-66.0) % Eos # (Auto) (0-0.5) Absolute Lymphs (auto) (1.0-4.6) Absolute Monos (auto) (0.0-1.3) Lymphocytes % (24.0-44.0) % Monocytes % (0.0-12.0) % Eosinophils % (0.00-5.0) % Basophils % (0.0-0.4) % Absolute Granulocytes (1.4-6.9) Basophils # (0-0.4) PT 31.4 H (9.95-12.35) SECONDS INR 2.75 (0.8-3.0) Sodium 127 L (137-145) mmol/L Potassium 4.2 (3.5-5.1) mmol/L Chloride 94 L (98-107) mmol/L Carbon Dioxide 24 (22-30) mmol/L Anion Gap 13.4 (5-15) MEQ/L BUN 16 (7-17) mg/dL Creatinine 0.60 (0.52-1.04) mg/dL Estimated GFR > 60.0 ML/MIN Glucose 111 H (74-106) mg/dL Calcium 9.1 (8.4-10.2) mg/dL Total Bilirubin 0.50 (0.2-1.3) mg/dL AST 74 H (14-36) U/L ALT 37 H (0-35) U/L Alkaline Phosphatase 157 H (38-126) U/L Troponin I < 0.012 (0.000-0.034) ng/mL NT-Pro-B Natriuret Pep 3870 H (0-1800) pg/mL Serum Total Protein 7.3 (6.3-8.2) g/dL Albumin 3.7 (3.5-5.0) g/dL 06/11/20 Range/Units 21:00 WBC 10.9 H (4.0-10.5) K/mm3 RBC 4.45 (4.1-5.4) M/mm3 Hgb 10.8 L (12.0-16.0) gm/dl Hct 34.5 L (35-47) % MCV 77.5 L (78-100) fl MCH 24.3 L (26-32) pg MCHC 31.3 L (32-36) g/dl RDW 17.7 H (11.5-14.0) % Plt Count 323 (150-450) K/mm3 MPV 8.1 (7.5-11.0) fl Gran % 83.6 H (36.0-66.0) % Eos # (Auto) 0.06 (0-0.5) Absolute Lymphs (auto) 0.93 L (1.0-4.6) Absolute Monos (auto) 0.80 (0.0-1.3) Lymphocytes % 8.5 L (24.0-44.0) % Monocytes % 7.3 (0.0-12.0) % Eosinophils % 0.5 (0.00-5.0) % Basophils % 0.1 (0.0-0.4) % Absolute Granulocytes 9.13 H (1.4-6.9) Basophils # 0.01 (0-0.4) PT (9.95-12.35) SECONDS INR (0.8-3.0) Sodium (137-145) mmol/L Potassium (3.5-5.1) mmol/L Chloride (98-107) mmol/L Carbon Dioxide (22-30) mmol/L Anion Gap (5-15) MEQ/L BUN (7-17) mg/dL Creatinine (0.52-1.04) mg/dL Estimated GFR ML/MIN Glucose (74-106) mg/dL Calcium (8.4-10.2) mg/dL Total Bilirubin (0.2-1.3) mg/dL AST (14-36) U/L ALT (0-35) U/L Alkaline Phosphatase (38-126) U/L Troponin I (0.000-0.034) ng/mL NT-Pro-B Natriuret Pep (0-1800) pg/mL Serum Total Protein (6.3-8.2) g/dL Albumin (3.5-5.0) g/dL - Progress Progress: re-examined Air Movement: good Progress Note: 06/11/20 23:23 She feels fine. BNP elevated somewhat, ? chronic. May have very mild fluid overload in lungs, although I did not see that on CXR. Offered to Rx a low-dose diuretic, they dedclined. Say they will see PCP on that. 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 No mental status changes. Rec. use the walker at home since somewhat prone to falls. Home with daughter. Blood Culture(s) Obtained: No Antibiotics given: No Counseled pt/family regarding: lab results, diagnosis, need for follow-up, rad results - Departure Clinical Impression: Dyspnea on effort Contusion of hip, right Qualifiers: Encounter type: initial encounter Qualified Code(s): S70.01XA - Contusion of right hip, initial encounter Condition: Stable Critical Care Time: No Referrals: KAN CHOWDHURY [Primary Care Provider] - Instructions: Shortness of Breath (Dyspnea) (DC) Additional Instructions: Activity as tolerated. Use your walker. Recheck with the family on the shortness of breath.
[2020-06-11 23:26] VITALS: O2SAT 93
[2020-06-12 00:05] VITALS: BP 136/86; PULSE 93
--- NOTE | 2020-06-12 07:56 | XRAY ---
Indication: Pain following fall. Multiple contiguous axial images obtained through the right hip. Sagittal and coronal reformatted images obtained. Comparison: None Osseous structures demineralized consistent with patient's age. No acute fracture, dislocation, or osseous destructive process. Subcentimeter right superior acetabulum bone island and mild weightbearing degenerative joint space narrowing. Additional moderate degenerative changes of the visualized lower lumbar spine. Mild lateral hip/gluteal soft tissue swelling. Incompletely visualized 6 cm right renal cyst and mild fecal stasis. Remaining visualized noncontrasted soft tissues unremarkable. Impression: 1. Negative acute fracture/dislocation. 2. Incidental osteopenia, degenerative changes, mild fecal stasis, and incompletely visualized right renal cyst. Comment: Preliminary interpretation was made by [facility]. No critical discrepancy.
--- NOTE | 2020-06-12 07:57 | XRAY ---
Indication: Dyspnea. Comparison: July 25, 2019. Portable chest again hyperinflated with new subtle right base infiltrate versus atelectasis. Stable left infrahilar subsegmental atelectasis/scarring. Heart not enlarged for AP portable technique. Bony thorax intact again with mild osteopenia and degenerative changes.
== END 2020-06-12 00:05 | disposition home or self-care (01) ==
LOC: ED 20:48
DX: S70.01XA Contusion of right hip, initial encounter (principal); R06.09 Other forms of dyspnea; W19.XXXD Unspecified fall, subsequent encounter; Z79.899 Other long term (current) drug therapy; Z79.01 Long term (current) use of anticoagulants
CPT/HCPCS: 36415; 71045; 72192; 80053; 83880; 84484; 85025; 85610; 93005; 99284

== ENCOUNTER 2021-05-24 15:54 | Emergency (ER) | payer MEDICARE ==
[2021-05-24 16:11] VITALS: O2SAT 97
--- NOTE | 2021-05-24 16:30 | ERPHSYRPT ---
- History of Present Illness Source: patient, other (Daughter) Exam Limitations: other (Pt w dementia) Patient Subjective Stated Complaint: Pt's daughter states "my mother has been feeling short of breath when she stands up and moves around. She is also saying she is light headed lately too. She had a fall a couple weeks ago and I think it took a toll on her." Triage Nursing Assessment: Pt alert, skin pink, warm, and dry. Pt has slight L sided facial droop with no other deficits at this time. pt has hx of dementia. Her daughter is the primary landcare facilitator. Pt denies chest pain or lightheadedness at this time. Pt has hx of a fib. Pt has bilateral lower extremity edema Physician History: 89 yo wf w dementia presents w dyspnea/chest pain/lethargy since fall 2 weeks ago. Pt was examined at ER w neg head CT and possible compression fx. Leon corey states that she is more dyspneic upon exertion and that chest pain is intermittant. Pt denies any dyspnea or chest pain at present. Cough/fever/focal weakness/BRICEÑO/N/V/D/melena/hematochezia are all denied by pt. Daughter states that she tried to get her into a NH for rehab but was denied. Timing/Duration: other (Progressive over 2wks) Severity: mild Modifying Factors: Improves With: movement Associated Symptoms: shortness of breath, chest pain, weakness, No nausea, No vomiting, No abdominal pain, No heartburn, No diaphoresis, No cough, No chills, No fever, No headaches, No loss of appetite, No malaise, No rash, No syncope, No seizure Allergies/Adverse Reactions: doxycycline Allergy (Severe, Verified 06/11/20 21:27) Blisters blisters in throat and difficulty swallowing Penicillins Allergy (Intermediate, Verified 06/11/20 21:27) Swelling of Face Sulfa (Sulfonamide Antibiotics) [Sulfa(Sulfonamide Antibiotics)] Allergy (Intermediate, Verified 06/11/20 21:27) Swelling of Face amoxicillin [Amoxicillin] Allergy (Verified 06/11/20 21:27) ciprofloxacin [From Cipro] Adverse Reaction (Intermediate, Verified 06/11/20 21:27) weak and sick weak and sick ciprofloxacin HCl [From Cipro] Adverse Reaction (Intermediate, Verified 06/11/20 21:27) weak and sick weak and sick codeine [Codeine] Adverse Reaction (Mild, Verified 06/11/20 21:27) Nausea Home Medications: Metoprolol Succinate [Toprol Xl] 25 mg PO BID 05/06/16 [History] Warfarin Sodium 3 mg PO DAILY 07/25/19 [History] Furosemide [Lasix] 05/24/21 [History] Potassium Gluconate [Potassium] 05/24/21 [History] Hx Tetanus, Diphtheria Vaccination/Date Given: No Hx Influenza Vaccination/Date Given: Yes Hx Pneumococcal Vaccination/Date Given: Yes Immunizations Up to Date: No Travel Risk - International Travel Have you traveled outside of the country in past 3 weeks: No - Coronavirus Screening Are you exhibiting any of the following symptoms?: No Close contact with a COVID-19 positive Pt in past 14-21 Days: No - Vaccine Status Have you recieved a Covid-19 vaccination: Yes [employer]: Instagram - Vaccination Dates Date of 2cond Vaccination (if applicable): Apr or May 2020 - Review of Systems Constitutional: No Symptoms, Lethargy, Malaise, Weakness Eyes: No Symptoms Ears, Nose, & Throat: No Symptoms Respiratory: No Symptoms, Dyspnea on Exertion ([place]) Cardiac: No Symptoms, Chest Pain Abdominal/Gastrointestinal: No Symptoms Genitourinary Symptoms: No Symptoms Musculoskeletal: No Symptoms Skin: No Symptoms Neurological: No Symptoms Psychological: No Symptoms Endocrine: No Symptoms Hematologic/Lymphatic: No Symptoms Immunological/Allergic: No Symptoms - Past Medical History Pertinent Past Medical History: Yes Neurological History: Dementia ENT History: Cataracts, Other Cardiac History: Arrhythmia, Deep Vein Thrombosis Respiratory History: Asthma Endocrine Medical History: No Pertinent History Musculoskeletal History: Osteoporosis GI Medical History: Polyps History: Other Psycho-Social History: No Pertinent History Female Reproductive Disorders: No Pertinent History Other Medical History: CHRONIC AFIB, nose bleeds, kidney infection - Past Surgical History Past Surgical History: Yes Neuro Surgical History: No Pertinent History Cardiac: No Pertinent History Respiratory: No Pertinent History Gastrointestinal: Other Genitourinary: Other Musculoskeletal: Orthopedic Surgery Female Surgical History: Hysterectomy Other Surgical History: colonoscopy, bladder tie up, hysterectomy is partial,. back surgery x 2, tonsilectomy - Social History Smoking Status: Unknown if ever smoked Exposure to second hand smoke: No Drug Use: none Patient Lives Alone: No Significant Family History: no pertinent family hx - Nursing Vital Signs Nursing Vital Signs: Initial Vital Signs Temperature 97.3 F 05/24/21 16:00 Pulse Rate 75 05/24/21 16:00 Respiratory Rate 18 05/24/21 16:00 Blood Pressure 144/81 05/24/21 16:00 O2 Sat by Pulse Oximetry 97 05/24/21 16:00 Pain Scale Pain Intensity 0 Mildly hypertensive - Physical Exam General Appearance: no apparent distress Eye Exam: PERRL/EOMI, eyes nml inspection Ears, Nose, Throat Exam: normal ENT inspection, TMs normal, pharynx normal, moist mucous membranes Neck Exam: normal inspection, non-tender, supple, full range of motion, No meningismus, No mass, No Brudzinski, No Kernig's Respiratory Exam: airway intact, crackles/rales (Faint rales L base) Cardiovascular Exam: normal heart sounds, normal peripheral pulses, capillary refill <2 sec, other (Ir-Ir) Gastrointestinal/Abdomen Exam: soft, normal bowel sounds, No tenderness Back Exam: normal inspection, normal range of motion, No CVA tenderness, No vertebral tenderness Extremity Exam: normal inspection, normal range of motion, pelvis stable Neurologic Exam: alert, cooperative, 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, normal mood/affect, nml cerebellar function, nml station & gait, sensation nml, disoriented (To time-baseline) Skin Exam: normal color, warm, dry, No rash Lymphatic Exam: No adenopathy SpO2 Interpretation: normal SpO2: 97 O2 Delivery: Room Air - Course Nursing assessment & vital signs reviewed: Yes EKG Interpreted by Me: RATE (Afib/R64/Normal QT-QTc/Poor Rwave progression/No acute ST segment changes) - Radiology Exams Chest X-ray Interpretation: Discussed w/ radiologist (CXR NAD) - CT Exams Head CT Interpretation: Discussed w/radiologist (NAD) Ordered Tests: Active Orders 24 hr Category Date Time Status EKG-ER Only STAT Care 05/24/21 16:21 Completed IV Insertion STAT Care 05/24/21 16:21 Completed CHEST 1 VIEW (PORTABLE) Stat Exams 05/24/21 16:18 Completed HEAD WITHOUT CONTRAST [CT] Stat Exams 05/24/21 16:20 Completed CBC W DIFF Stat Lab 05/24/21 16:05 Completed CMP Stat Lab 05/24/21 16:05 Completed CULTURE,URINE Stat Lab 05/24/21 16:22 Ordered Lactic Acid Stat Lab 05/24/21 16:17 Completed NT PRO BNP Stat Lab 05/24/21 16:05 Completed PROTIME WITH INR Stat Lab 05/24/21 16:05 Completed PTT Stat Lab 05/24/21 16:05 Completed TROPONIN Q3H Lab 05/24/21 16:05 Completed UA W/RFX UR CULTURE Stat Lab 05/24/21 16:22 Completed Transfer Order Routine Transfer 05/24/21 Ordered Lab/Rad Data: Laboratory Result Diagrams 05/24/21 16:05 05/24/21 16:05 Laboratory Results 05/24/21 05/24/21 05/24/21 Range/Units 16:22 16:17 16:05 WBC (4.0-10.5) K/mm3 RBC (4.1-5.4) M/mm3 Hgb (12.0-16.0) gm/dl Hct (35-47) % MCV (78-100) fl MCH (26-32) pg MCHC (32-36) g/dl RDW (11.5-14.0) % Plt Count (150-450) K/mm3 MPV (7.5-11.0) fl Gran % (36.0-66.0) % Eos # (Auto) (0-0.5) Absolute Lymphs (auto) (1.0-4.6) Absolute Monos (auto) (0.0-1.3) Lymphocytes % (24.0-44.0) % Monocytes % (0.0-12.0) % Eosinophils % (0.00-5.0) % Basophils % (0.0-0.4) % Absolute Granulocytes (1.4-6.9) Basophils # (0-0.4) PT (9.4-12.5) SECONDS INR (0.8-3.0) APTT (25.1-36.5) SECONDS Sodium (137-145) mmol/L Potassium (3.5-5.1) mmol/L Chloride (98-107) mmol/L Carbon Dioxide (22-30) mmol/L Anion Gap (5-15) MEQ/L BUN (7-17) mg/dL Creatinine (0.52-1.04) mg/dL Estimated GFR ML/MIN Glucose (74-106) mg/dL Lactic Acid 1.2 (0.4-2.0) Calcium (8.4-10.2) mg/dL Total Bilirubin (0.2-1.3) mg/dL AST (14-36) U/L ALT (0-35) U/L Alkaline Phosphatase (38-126) U/L Troponin I < 0.012 (0.000-0.034) ng/mL NT-Pro-B Natriuret Pep (0-1800) pg/mL Serum Total Protein (6.3-8.2) g/dL Albumin (3.5-5.0) g/dL Urine Color YELLOW (YELLOW) Urine Appearance CLEAR (CLEAR) Urine pH 5.0 (5-6) Ur Specific [place] 1.008 (1.005-1.025) Urine Protein NEGATIVE (Negative) Urine Ketones NEGATIVE (NEGATIVE) Urine Blood MODERATE (0-5) [place]/ul Urine Nitrite NEGATIVE (NEGATIVE) Urine Bilirubin NEGATIVE (NEGATIVE) Urine Urobilinogen NEGATIVE (0-1) mg/dL Ur Leukocyte Esterase NEGATIVE (NEGATIVE) Urine WBC (Auto) 0-2 (0-5) /HPF Urine RBC (Auto) 3-5 (0-2) /HPF U Epithel Cells (Auto) RARE (FEW) /HPF Urine Bacteria (Auto) RARE (NEGATIVE) /HPF Urine Culture Reflexed ORDERED SEPARATELY (NO) Urine Glucose NEGATIVE (NEGATIVE) mg/dL 05/24/21 05/24/21 05/24/21 Range/Units 16:05 16:05 16:05 WBC 6.8 (4.0-10.5) K/mm3 RBC 4.48 (4.1-5.4) M/mm3 Hgb 12.4 (12.0-16.0) gm/dl Hct 39.1 (35-47) % MCV 87.3 (78-100) fl MCH 27.7 (26-32) pg MCHC 31.7 L (32-36) g/dl RDW 16.8 H (11.5-14.0) % Plt Count 370 (150-450) K/mm3 MPV 8.4 (7.5-11.0) fl Gran % 59.3 (36.0-66.0) % Eos # (Auto) 0.23 (0-0.5) Absolute Lymphs (auto) 1.69 (1.0-4.6) Absolute Monos (auto) 0.84 (0.0-1.3) Lymphocytes % 24.7 (24.0-44.0) % Monocytes % 12.3 H (0.0-12.0) % Eosinophils % 3.4 (0.00-5.0) % Basophils % 0.3 (0.0-0.4) % Absolute Granulocytes 4.06 (1.4-6.9) Basophils # 0.02 (0-0.4) PT 33.7 H (9.4-12.5) SECONDS INR 2.86 (0.8-3.0) APTT 47.5 H (25.1-36.5) SECONDS Sodium 130 L (137-145) mmol/L Potassium 4.7 (3.5-5.1) mmol/L Chloride 98 (98-107) mmol/L Carbon Dioxide 24 (22-30) mmol/L Anion Gap 12.3 (5-15) MEQ/L BUN 17 (7-17) mg/dL Creatinine 0.70 (0.52-1.04) mg/dL Estimated GFR > 60.0 ML/MIN Glucose 94 (74-106) mg/dL Lactic Acid (0.4-2.0) Calcium 8.9 (8.4-10.2) mg/dL Total Bilirubin 0.60 (0.2-1.3) mg/dL AST 32 (14-36) U/L ALT 14 (0-35) U/L Alkaline Phosphatase 162 H (38-126) U/L Troponin I (0.000-0.034) ng/mL NT-Pro-B Natriuret Pep 2320 H (0-1800) pg/mL Serum Total Protein 7.3 (6.3-8.2) g/dL Albumin 3.7 (3.5-5.0) g/dL Urine Color (YELLOW) Urine Appearance (CLEAR) Urine pH (5-6) Ur Specific [place] (1.005-1.025) Urine Protein (Negative) Urine Ketones (NEGATIVE) Urine Blood (0-5) [place]/ul Urine Nitrite (NEGATIVE) Urine Bilirubin (NEGATIVE) Urine Urobilinogen (0-1) mg/dL Ur Leukocyte Esterase (NEGATIVE) Urine WBC (Auto) (0-5) /HPF Urine RBC (Auto) (0-2) /HPF U Epithel Cells (Auto) (FEW) /HPF Urine Bacteria (Auto) (NEGATIVE) /HPF Urine Culture Reflexed (NO) Urine Glucose (NEGATIVE) mg/dL - Progress Progress Note: 05/24/21 17:[address] Payton 05/24/21 17:40 Pt alert and oriented x2. She refuses admit at this time. Her daughter is willing to take her home. Will see patient in: hospital (observation) Counseled pt/family regarding: lab results, diagnosis, need for follow-up, rad results - Departure Departure Disposition: Home Clinical Impression: Lethargy Condition: Stable Critical Care Time: No Referrals: KAN CHOWDHURY [Primary Care Provider] - Follow up/PCP as directed Instructions: Heart Failure, Fatigue (DC), Shortness of Breath (Dyspnea) (DC), Generalized Weakness Additional Instructions: Follow up with Dr. Chowdhury in 1-2 days Return to ER for persistent chest pain or shortness of breath
[2021-05-24 16:36] LABS: Absolute Neutrophil Ct (ANC) 4.06 (1.4-6.9); Basophil (Absolute #) 0.02 (0-0.4); Eosinophil % 3.4 % (0.00-5.0); Eosinophil (Absolute #) 0.23 (0-0.5); Hematocrit 39.1 % (35-47); Hemoglobin 12.4 gm/dl (12.0-16.0); Lymphocyte (Absolute #) 1.69 (1.0-4.6); Lymphocytes % 24.7 % (24.0-44.0); Mean Cell Volume 87.3 fl (78-100); Mean Corpuscular Hemoglobin 27.7 pg (26-32); Mean Corpuscular Hgb Concent. 31.7 g/dl (32-36); Mean Platelet Volume 8.4 fl (7.5-11.0); Monocyte (Absolute #) 0.84 (0.0-1.3); Monocytes % 12.3 % (0.0-12.0); Neutrophil % 59.3 % (36.0-66.0); Platelet Count 370 K/mm3 (150-450); Red Blood Count 4.48 M/mm3 (4.1-5.4); Red Cell Distribution Width 16.8 % (11.5-14.0); White Blood Count 6.8 K/mm3 (4.0-10.5)
--- NOTE | 2021-05-24 16:38 | XRAY ---
Indication: Lethargy. Comparison: June 11, 2020. Portable chest remains hyperinflated and clear. Heart not enlarged for AP portable technique. Bony thorax intact again with mild osteopenia and degenerative changes. Impression: Nonacute hyperinflated chest.
[2021-05-24 16:44] LABS: Appearance CLEAR (CLEAR); Bacteria RARE /HPF (NEGATIVE); Bilirubin NEGATIVE (NEGATIVE); Blood MODERATE Ery/ul (0-5); Epithelial Cells RARE /HPF (FEW); Glucose NEGATIVE (NEGATIVE); Ketones NEGATIVE (NEGATIVE); Leukocyte Esterase NEGATIVE (NEGATIVE); Nitrite NEGATIVE (NEGATIVE); Protein,Urine Dip NEGATIVE (Negative); Specific Gravity 1.008 (1.005-1.025); Urobilinogen NEGATIVE mg/dL (0-1); WBC 0-2 /HPF (0-5)
[2021-05-24 16:54] LABS: ALBUMIN 3.7 g/dL (3.5-5.0); ALKALINE PHOSPHATASE 162 U/L (38-126); ANION GAP 12.3 MEQ/L (5-15); BLOOD UREA NITROGEN 17 mg/dL (7-17); CHLORIDE 98 mmol/L (98-107); Calcium 8.9 mg/dL (8.4-10.2); Carbon Dioxide 24 mmol/L (22-30); EST GLOMERULAR FILTRATION RATE > 60.0 ML/MIN; Glucose 94 mg/dL (74-106); NT PRO BNP 2320 pg/mL (0-1800); Potassium 4.7 mmol/L (3.5-5.1); SGOT/AST 32 U/L (14-36); SGPT/ALT 14 U/L (0-35); SODIUM 130 mmol/L (137-145); Total Protein 7.3 g/dL (6.3-8.2)
--- NOTE | 2021-05-24 16:58 | XRAY ---
Indication: Degrading mental status. Status post fall 2 weeks ago. Multiple contiguous axial images obtained through the head without contrast. Comparison: June 03, 2018. There is age-appropriate global atrophy and mild periventricular degenerative micro-ischemia bilaterally. No acute intracranial hemorrhage, abnormal extra-axial fluid collection, or mass effect. Fourth ventricle is midline without hydrocephalus. Bony calvarium intact. Visualized paranasal sinuses and mastoid air cells are clear. Impression: Nonacute senile brain.
[2021-05-24 17:05] LABS: INR 2.86 (0.8-3.0); PROTIME 33.7 SECONDS (9.4-12.5)
[2021-05-24 17:08] LABS: PTT 47.5 SECONDS (25.1-36.5)
[2021-05-24 17:28] VITALS: BP 156/81; PULSE 80
== END 2021-05-24 17:49 | disposition home or self-care (01) ==
LOC: ED 15:54
DX: R53.83 Other fatigue (principal); R07.9 Chest pain, unspecified; R06.00 Dyspnea, unspecified; I48.20 Chronic atrial fibrillation, unspecified; Z79.01 Long term (current) use of anticoagulants; F03.90 Unspecified dementia, unspecified severity, without behavioral disturbance, psychotic disturbance, mood disturbance, and anxiety; Z79.899 Other long term (current) drug therapy
CPT/HCPCS: 36000; 36415; 70450; 71045; 80053; 81001; 83605; 83880; 84484; 85025; 85610; 85730; 87086; 93005; 99284